=== PATIENT | female | born 1930 | race Caucasian/White ===

== ENCOUNTER 2017-11-07 22:35 | Inpatient (IN) | payer MEDICARE, MEDICAID ==
[2017-11-07] MEDS ORDERED: Maalox 30 mL Cup PO PRN (23:31)
[2017-11-07] MEDS ORDERED: Magnesium Hydroxide (MOM) 30 mL UDC PO PRN (23:31)
[2017-11-07 23:50] VITALS: BP 116/71
[2017-11-08] MEDS: Multivitamin Tab PO SCH (10:08)
--- NOTE | 2017-11-08 12:43 | Psychosocial Evaluation ---
DATE OF SERVICE: 11/07/2017 IDENTIFYING INFORMATION: The patient is an 86-year-old female, Thai speaking. HISTORY OF PRESENT ILLNESS: The patient was sent because of agitation and confusion. The patient herself is Thai speaking. I tried to talk to her and she would not answer enough my question. Actually, I took the cover of her head and she put it back quickly. The patient has been on Seroquel 12.5 mg at bedtime. The patient is unable to participate in meaningful conversation despite trying to use a outboard technician, very confused, easily agitated. PAST PSYCHIATRIC HISTORY: Unobtainable. Obviously, she seems to be demented. ALLERGIES: THE PATIENT IS ALLERGIC TO CLINDAMYCIN, CODEINE, AND PENICILLIN. MEDICATIONS: The patient is not on any medications other than the Seroquel. FAMILY AND SOCIAL HISTORY: The patient is unable to give any information regarding her family history, but however, she has a son that has already called and expected her to be discharged; however, he was told by the staff that she is still saying she just came and need to be evaluated. MENTAL STATUS EXAMINATION: The patient was appropriately dressed, not well groomed. She was in bed. She had her head covered; when I tried to take it off after a few seconds, she put it back. Could not answer my questions in any way or give me any information regarding her history. She seems to be confused and demented. When asked about suicide and homicide, she would not answer. Unable to participate in a meaningful conversation. Insight and judgment is impaired. IMPRESSION: AXIS I: Psychosis, not otherwise specified, dementia. MEDICAL DIAGNOSES: Deferred to the medical doctor. Her assets, accepting treatment. Negative poor coping skills. INITIAL TREATMENT PLAN: The patient will continue with the Seroquel. We will do group therapy, milieu therapy. ESTIMATED LENGTH OF STAY: 2-7 days. DISCHARGE CRITERIA: Feeling better, no longer psychotic. After discharge, outpatient treatment. JOB# [id number]
--- NOTE | 2017-11-08 15:29 | Internal Medicine Prog Note ---
Internal Medicine Subjective - Subjective Service Date: 11/08/17 ([id number] hn [id number]) Internal Medicine Objective - Physical Exam Vitals and I&O: Vital Signs Temp 98.6 F 11/07/17 23:28 Pulse 74 11/08/17 08:02 Resp 18 11/08/17 08:02 BP 116/71 11/07/17 23:28 Pulse Ox 98 11/08/17 08:02 Intake & Output 11/07/17 11/08/17 11/08/17 18:59 06:59 18:59 Weight (lbs) 165 lb Other: # Voids 2 Active Medications: Current Medications Acetaminophen (Tylenol) 650 mg PO Q4HR PRN PRN Reason: Mild Pain / Temp above 100 Stop: 01/06/18 23:30 Al Hydrox/Mg Hydrox/Simethicone (Maalox) 30 ml PO Q4HR PRN PRN Reason: GI DISTRESS Stop: 01/06/18 23:30 Donepezil HCl (Aricept) 5 mg PO HS VIKI Stop: 01/07/18 20:59 Lorazepam (Ativan) 0.5 mg PO Q4HR PRN; Protocol PRN Reason: Anxiety Stop: 12/07/17 23:30 Magnesium Hydroxide (Milk Of Magnesia) 30 ml PO HS PRN PRN Reason: Constipation Multivitamins/Vitamin C (Theragran) 1 tab PO DAILY VIKI Stop: 01/07/18 08:59 Last Admin: 11/08/17 10:08 Dose: Not Given Quetiapine Fumarate (Seroquel) 12.5 mg PO HS VIKI PRN Reason: Protocol Stop: 01/07/18 20:59 Zolpidem Tartrate (Ambien) 5 mg PO HS PRN PRN Reason: Insomnia Stop: 01/06/18 23:30
[2017-11-08] MEDS: INSULIN ASPART SLIDING SCALE 100 UNITS/ML UNIT SUBQ SCH ×2 (16:13→20:27)
[2017-11-08] MEDS: cloNIDine 0.2 mg/24 hr Tdm TD SCH (16:33)
[2017-11-08] MEDS ORDERED: Non-Formulary Item 1 EA (Carvedilol [Coreg] 25 MG) PO SCH (18:00)
--- NOTE | 2017-11-08 18:05 | History & Physical ---
ADMIT DATE: 11/08/2017 DICTATED FOR: Dr. Mateus Cunningham CHIEF COMPLAINT: Psychosis. HISTORY OF PRESENT ILLNESS: This is an 86-year-old female who was transferred from [facility], now admitted to the Geropsych Unit due to psychosis. The patient was at [facility]. She was admitted there on 11/01/2017. The patient was found to have an elevated troponin and it was consistent with acute NSTEMI. The patient was being treated with yarn weigher as well. She was cleared by Cardiology to be discharged here to the Geropsych Unit. PAST MEDICAL HISTORY: Acute on chronic diastolic CHF, acute NSTEMI, left bundle branch block, CAD, type 2 diabetes, encephalopathy, dementia, history of CVA with left-sided hemiplegia, history of subdermal hematoma of the right parietal region in May 2017, hyperlipidemia, hypertensive heart disease, aortic sclerosis, moderate mitral regurgitation, left ventricular diastolic dysfunction, first degree AV block. PAST SURGICAL HISTORY: . SOCIAL HISTORY: No alcohol, illicit drug usage. FAMILY HISTORY: Noncontributory. REVIEW OF SYSTEMS: Unable to obtain due to the patient's mental status. The patient is confused. PHYSICAL EXAMINATION: GENERAL: This is an elderly female, awake with confusion, no apparent distress. VITAL SIGNS: Temperature 99.6, heart rate 72, blood pressure 116/71, respiration 18, O2 97%. HEENT: Head normocephalic, atraumatic. NECK: Supple. No mass. LUNGS: Clear bilaterally. . ABDOMEN: Soft, nontender. ASSESSMENT: Acute on chronic diastolic CHF, type 2 diabetes, dementia, history of CVA with left-sided hemiplegia, history of subdural hematoma on the right parietal region, hyperlipidemia, hypertensive heart disease, psychosis. PLAN: We will get the patient's baseline hemoglobin A1c level. The patient to continue the same medications the patient was taking at home. We will continue to follow this patient. JOB# [id number]
[2017-11-08] MEDS: Atorvastatin Calcium 10 MG TAB PO SCH (20:41)
[2017-11-08] MEDS ORDERED: Non-Formulary Item 1 EA (Rosuvastatin Calcium [Crestor] 5 MG) PO SCH (21:00)
[2017-11-08] MEDS ORDERED: Non-Formulary Item 1 EA (Atorvastatin Calcium [Lipitor] 20 MG) PO SCH (21:00)
[2017-11-09] MEDS: Pantoprazole 40 mg EC Tab PO SCH (06:59)
[2017-11-09] MEDS: INSULIN ASPART SLIDING SCALE 100 UNITS/ML UNIT SUBQ SCH ×4 (08:14→20:49)
[2017-11-09] MEDS: Ferrous Sulfate 325 MG TAB PO SCH (08:15)
[2017-11-09] MEDS: Enoxaparin 30 mg/0.3 mL 0.3mL Syr SUBQ SCH (08:16)
[2017-11-09] MEDS: Lactulose 10 Gm/15 mL 30mL UDC PO SCH (08:18)
[2017-11-09] MEDS: Multivitamin Tab PO SCH (08:19)
[2017-11-09] MEDS ORDERED: FUROSEMIDE 80 MG PO SCH (09:00)
[2017-11-09] MEDS ORDERED: LISINOPRIL 40 MG PO SCH (09:00)
[2017-11-09 09:02] LABS: % BASOPHILS 0.8 % (0.0-2.0); % EOSINOPHILS 3.2 % (0.0-5.0); % LYMPHOCYTES 29.8 % (20.0-50.0); % MONOCYTES 7.9 % (2.0-10.0); % NEUTROPHILS 58.3 % (40.0-80.0); BASOPHILE ABSOLUTE 0.1 Th/cumm (0-0.2); EOSINOPHILE ABSOLUTE 0.2 Th/cmm (0.1-0.4); HEMATOCRIT 36.3 % (41.0-60); HEMOGLOBIN 11.8 gm/dL (12-16); LYMPHOCYTE ABSOLUTE 2.2 Th/cmm (1.5-3.0); MEAN CORPUSCULAR HEMOGLOBIN 27.6 pg (27.0-31.0); MEAN CORPUSCULAR HGB CONC 32.5 pg (28.0-36.0); MEAN PLATELET VOLUME 9.8 fl; MONOCYTE ABSOLUTE 0.6 Th/cmm (0.3-1.0); NEUTROPHILE ABSOLUTE 4.3 Th/cmm (1.8-8.0); PLATELET COUNT 217 Th/cmm (150-400); RED BLOOD COUNT 4.26 Mil/cmm (3.80-5.20); RED CELL DISTRIBUTION WIDTH 14.5 % (11.5-20.0); WHITE BLOOD COUNT 7.4 Th/cmm (4.8-10.8)
[2017-11-09 09:22] LABS: ANION GAP 8.1 (7.0-16.0); BUN - UREA NITROGEN 14 mg/dL (7-25); CALCIUM SERUM 9.1 mg/dL (8.6-10.3); CARBON DIOXIDE 25.8 mEq/L (21.0-31.0); CHLORIDE 108 mEq/L (98-107); CREATININE - SERUM 0.6 mg/dL (0.6-1.2); GLUCOSE 102 mg/dL (70-105); POTASSIUM SERUM 3.9 mEq/L (3.5-5.1); SODIUM SERUM 138 mEq/L (136-145)
--- NOTE | 2017-11-09 13:25 | Internal Medicine Prog Note ---
Internal Medicine Subjective - Subjective Service Date: 11/09/17 Patient seen and examined:: with staff Patient is:: awake Internal Medicine Objective - Results Result Diagrams: 11/09/17 08:40 11/09/17 08:40 Recent Labs: Laboratory Last Values WBC 7.4 Th/cmm (4.8-10.8) 11/09/17 08:40 RBC 4.26 Mil/cmm (3.80-5.20) 11/09/17 08:40 Hgb 11.8 gm/dL (12-16) L 11/09/17 08:40 Hct 36.3 % (41.0-60) L 11/09/17 08:40 MCV 85.0 fl (81-100) 11/09/17 08:40 MCH 27.6 pg (27.0-31.0) 11/09/17 08:40 MCHC Differential 32.5 pg (28.0-36.0) 11/09/17 08:40 RDW 14.5 % (11.5-20.0) 11/09/17 08:40 Plt Count 217 Th/cmm (150-400) 11/09/17 08:40 MPV 9.8 fl 11/09/17 08:40 Neutrophils % 58.3 % (40.0-80.0) 11/09/17 08:40 Lymphocytes % 29.8 % (20.0-50.0) 11/09/17 08:40 Monocytes % 7.9 % (2.0-10.0) 11/09/17 08:40 Eosinophils % 3.2 % (0.0-5.0) 11/09/17 08:40 Basophils % 0.8 % (0.0-2.0) 11/09/17 08:40 Sodium 138 mEq/L (136-145) 11/09/17 08:40 Potassium 3.9 mEq/L (3.5-5.1) 11/09/17 08:40 Chloride 108 mEq/L (98-107) H 11/09/17 08:40 Carbon Dioxide 25.8 mEq/L (21.0-31.0) 11/09/17 08:40 Anion Gap 8.1 (7.0-16.0) 11/09/17 08:40 BUN 14 mg/dL (7-25) 11/09/17 08:40 Creatinine 0.6 mg/dL (0.6-1.2) 11/09/17 08:40 Est GFR ( Amer) TNP 11/09/17 08:40 Est GFR (Non-Af Amer) TNP 11/09/17 08:40 BUN/Creatinine Ratio 23.3 11/09/17 08:40 Glucose 102 mg/dL (70-105) 11/09/17 08:40 POC Glucose 206 MG/DL (70 - 105) H 11/09/17 11:25 Calcium 9.1 mg/dL (8.6-10.3) 11/09/17 08:40 - Physical Exam Vitals and I&O: Vital Signs Temp 98.4 F 11/09/17 06:00 Pulse 74 11/09/17 08:19 Resp 18 11/09/17 06:00 BP 133/65 11/09/17 08:19 Pulse Ox 96 11/09/17 06:00 Intake & Output 11/08/17 11/09/17 11/09/17 18:59 06:59 18:59 Intake Total 600 490 Output Total 2 Balance 600 488 Intake: Oral 600 490 Output: Stool 2 Other: # Voids 3 2 # Bowel Movements 1 Active Medications: Current Medications Acetaminophen (Tylenol) 650 mg PO Q4HR PRN PRN Reason: Mild Pain / Temp above 100 Stop: 01/06/18 23:30 Al Hydrox/Mg Hydrox/Simethicone (Maalox) 30 ml PO Q4HR PRN PRN Reason: GI DISTRESS Stop: 01/06/18 23:30 Ascorbic Acid (Vitamin C) 500 mg PO DAILY [facility] Stop: 01/08/18 08:59 Last Admin: 11/09/17 08:15 Dose: 500 mg Aspirin (Ecotrin) 81 mg PO DAILY [facility] Stop: 01/08/18 08:59 Last Admin: 11/09/17 08:16 Dose: 81 mg Atorvastatin Calcium (Lipitor) 20 mg PO HS [facility] Stop: 01/07/18 20:59 Last Admin: 11/08/17 20:41 Dose: 20 mg Bisacodyl (Dulcolax 10 Mg Supp) 10 mg RC DAILY PRN PRN Reason: Constipation Stop: 01/07/18 15:29 Carvedilol (Coreg) 25 mg PO BIDWM [facility] Stop: 01/07/18 17:59 Last Admin: 11/09/17 08:15 Dose: 25 mg Clonidine HCl (Ndzwuyeb-Ajo-1) 1 patch TD Q7D [facility] Stop: 01/07/18 15:29 Last Admin: 11/08/17 16:33 Dose: 1 patch Donepezil HCl (Aricept) 5 mg PO HS VIKI Stop: 01/07/18 20:59 Last Admin: 11/08/17 21:35 Dose: 5 mg Enoxaparin Sodium (Lovenox) 30 mg SUBQ DAILY [facility] Stop: 01/08/18 08:59 Last Admin: 11/09/17 08:16 Dose: 30 mg Famotidine (Pepcid) 20 mg PO DAILY [facility] Stop: 01/08/18 08:59 Last Admin: 11/09/17 08:17 Dose: 20 mg Ferrous Sulfate (Iron) 325 mg PO QDPC [facility]KI Stop: 01/08/18 08:29 Last Admin: 11/09/17 08:15 Dose: 325 mg Furosemide (Lasix) 80 mg PO DAILY [facility] Stop: 01/08/18 08:59 Last Admin: 11/09/17 08:17 Dose: 80 mg Insulin Aspart (Novolog Insulin Sliding Scale) 0 units SUBQ ACHS VIKI PRN Reason: Protocol Stop: 01/07/18 16:29 Last Admin: 11/09/17 11:29 Dose: 4 units Isosorbide Mononitrate (Imdur) 30 mg PO DAILY [facility] Stop: 01/08/18 08:59 Last Admin: 11/09/17 08:18 Dose: 30 mg Lactulose (Cephulac) 20 gm PO DAILY [facility] Stop: 01/08/18 08:59 Last Admin: 11/09/17 08:18 Dose: 20 gm Lisinopril (Zestril) 40 mg PO DAILY [facility] Stop: 01/08/18 08:59 Last Admin: 11/09/17 08:19 Dose: 40 mg Lorazepam (Ativan) 0.5 mg PO Q4HR PRN; Protocol PRN Reason: Anxiety Stop: 12/07/17 23:30 Last Admin: 11/09/17 08:20 Dose: 0.5 mg Magnesium Hydroxide (Milk Of Magnesia) 30 ml PO HS PRN PRN Reason: Constipation Multivitamins/Vitamin C (Theragran) 1 tab PO DAILY [facility] Stop: 01/07/18 08:59 Last Admin: 11/09/17 08:19 Dose: 1 tab Pantoprazole Sodium (Protonix) 40 mg PO QDAC [facility]KI Stop: 01/08/18 07:29 Last Admin: 11/09/17 06:59 Dose: 40 mg Quetiapine Fumarate (Seroquel) 12.5 mg PO HS VIKI PRN Reason: Protocol Stop: 01/07/18 20:59 Last Admin: 11/08/17 20:41 Dose: 12.5 mg Tramadol HCl (Ultram) 50 mg PO BID PRN PRN Reason: Pain (Moderate) Stop: 01/07/18 15:29 Zolpidem Tartrate (Ambien) 5 mg PO HS PRN PRN Reason: Insomnia Stop: 01/06/18 23:30 Last Admin: 11/08/17 20:41 Dose: 5 mg Internal Medicine Assmt/Plan - Assessment Assessment: CHF DM-2 DEMENTIA 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
[2017-11-09 14:22] LABS: A1C % 7.3 % (4.0-6.0)
[2017-11-09] MEDS: Atorvastatin Calcium 10 MG TAB PO SCH (20:30)
--- NOTE | 2017-11-09 23:16 | Progress Notes ---
DATE: 11/09/2017 SUBJECTIVE: Case was discussed with staff of the patient and reviewed records. The patient continues to have poor insight, confused, demented, unable to participate in meaningful conversation or make safe plan for self-care. Continues to isolate herself in bed, but she is compliant for the medication with no side effects. She is on Aricept that I started yesterday 5 mg at bedtime and Seroquel 12.5 mg at bedtime with no side effects, no sedation, no nausea, no extrapyramidal symptoms. I will continue patient in group therapy, milieu therapy, and adjust medications as needed. JOB# [id number]
[2017-11-10] MEDS: INSULIN ASPART SLIDING SCALE 100 UNITS/ML UNIT SUBQ SCH ×4 (06:37→21:58)
[2017-11-10] MEDS: Pantoprazole 40 mg EC Tab PO SCH (06:54)
[2017-11-10] MEDS: Enoxaparin 30 mg/0.3 mL 0.3mL Syr SUBQ SCH (10:18)
[2017-11-10] MEDS: Ferrous Sulfate 325 MG TAB PO SCH (10:18)
[2017-11-10] MEDS: Multivitamin Tab PO SCH (10:19)
[2017-11-10] MEDS: Lactulose 10 Gm/15 mL 30mL UDC PO SCH (10:19)
--- NOTE | 2017-11-10 15:35 | Internal Medicine Prog Note ---
Internal Medicine Subjective - Subjective Patient seen and examined:: with staff, chart reviewed Patient is:: awake, verbal, interactive, agitated, confused Per staff patient has:: no adverse event, agitated, confused, tolerating meds Internal Medicine Objective - Results Result Diagrams: 11/09/17 08:40 11/09/17 08:40 Recent Labs: Laboratory Last Values WBC 7.4 Th/cmm (4.8-10.8) 11/09/17 08:40 RBC 4.26 Mil/cmm (3.80-5.20) 11/09/17 08:40 Hgb 11.8 gm/dL (12-16) L 11/09/17 08:40 Hct 36.3 % (41.0-60) L 11/09/17 08:40 MCV 85.0 fl (81-100) 11/09/17 08:40 MCH 27.6 pg (27.0-31.0) 11/09/17 08:40 MCHC Differential 32.5 pg (28.0-36.0) 11/09/17 08:40 RDW 14.5 % (11.5-20.0) 11/09/17 08:40 Plt Count 217 Th/cmm (150-400) 11/09/17 08:40 MPV 9.8 fl 11/09/17 08:40 Neutrophils % 58.3 % (40.0-80.0) 11/09/17 08:40 Lymphocytes % 29.8 % (20.0-50.0) 11/09/17 08:40 Monocytes % 7.9 % (2.0-10.0) 11/09/17 08:40 Eosinophils % 3.2 % (0.0-5.0) 11/09/17 08:40 Basophils % 0.8 % (0.0-2.0) 11/09/17 08:40 Sodium 138 mEq/L (136-145) 11/09/17 08:40 Potassium 3.9 mEq/L (3.5-5.1) 11/09/17 08:40 Chloride 108 mEq/L (98-107) H 11/09/17 08:40 Carbon Dioxide 25.8 mEq/L (21.0-31.0) 11/09/17 08:40 Anion Gap 8.1 (7.0-16.0) 11/09/17 08:40 BUN 14 mg/dL (7-25) 11/09/17 08:40 Creatinine 0.6 mg/dL (0.6-1.2) 11/09/17 08:40 Est GFR ( Amer) TNP 11/09/17 08:40 Est GFR (Non-Af Amer) TNP 11/09/17 08:40 BUN/Creatinine Ratio 23.3 11/09/17 08:40 Glucose 102 mg/dL (70-105) 11/09/17 08:40 POC Glucose 155 MG/DL (70 - 105) H 11/10/17 11:35 Hemoglobin A1c % 7.3 % (4.0-6.0) H 11/09/17 08:40 Calcium 9.1 mg/dL (8.6-10.3) 11/09/17 08:40 - Physical Exam Vitals and I&O: Vital Signs Temp 97.3 F 11/10/17 06:49 Pulse 56 11/10/17 10:19 Resp 19 11/10/17 12:40 BP 141/65 11/10/17 10:19 Pulse Ox 97 11/10/17 07:33 Intake & Output 11/09/17 11/10/17 11/10/17 18:59 06:59 18:59 Intake Total 1200 Balance 1200 Intake: Oral 1200 Other: # Voids 4 # Bowel Movements 4 Stool Characteristics Liquid Soft Brown Active Medications: Current Medications Acetaminophen (Tylenol) 650 mg PO Q4HR PRN PRN Reason: Mild Pain / Temp above 100 Stop: 01/06/18 23:30 Last Admin: 11/10/17 13:38 Dose: 650 mg Al Hydrox/Mg Hydrox/Simethicone (Maalox) 30 ml PO Q4HR PRN PRN Reason: GI DISTRESS Stop: 01/06/18 23:30 Ascorbic Acid (Vitamin C) 500 mg PO DAILY [facility] Stop: 01/08/18 08:59 Last Admin: 11/10/17 10:18 Dose: Not Given Aspirin (Ecotrin) 81 mg PO DAILY [facility] Stop: 01/08/18 08:59 Last Admin: 11/10/17 10:19 Dose: Not Given Atorvastatin Calcium (Lipitor) 20 mg PO HS [facility] Stop: 01/07/18 20:59 Last Admin: 11/09/17 20:30 Dose: 20 mg Bisacodyl (Dulcolax 10 Mg Supp) 10 mg RC DAILY PRN PRN Reason: Constipation Stop: 01/07/18 15:29 Carvedilol (Coreg) 25 mg PO BIDWM [facility] Stop: 01/07/18 17:59 Last Admin: 11/10/17 10:05 Dose: Not Given Clonidine HCl (Iyczczjj-Esi-1) 1 patch TD Q7D [facility]KI Stop: 01/07/18 15:29 Last Admin: 11/08/17 16:33 Dose: 1 patch Donepezil HCl (Aricept) 5 mg PO HS [facility] Stop: 01/07/18 20:59 Last Admin: 11/09/17 20:31 Dose: 5 mg Enoxaparin Sodium (Lovenox) 30 mg SUBQ DAILY [facility] Stop: 01/08/18 08:59 Last Admin: 11/10/17 10:18 Dose: 30 mg Famotidine (Pepcid) 20 mg PO DAILY [facility] Stop: 01/08/18 08:59 Last Admin: 11/10/17 10:18 Dose: Not Given Ferrous Sulfate (Iron) 325 mg PO QDPC [facility] Stop: 01/08/18 08:29 Last Admin: 11/10/17 10:18 Dose: Not Given Furosemide (Lasix) 80 mg PO DAILY [facility] Stop: 01/08/18 08:59 Last Admin: 11/10/17 10:18 Dose: Not Given Insulin Aspart (Novolog Insulin Sliding Scale) 0 units SUBQ ACHS VIKI PRN Reason: Protocol Stop: 01/07/18 16:29 Last Admin: 11/10/17 11:41 Dose: 2 units Isosorbide Mononitrate (Imdur) 30 mg PO DAILY [facility] Stop: 01/08/18 08:59 Last Admin: 11/10/17 10:19 Dose: Not Given Lactulose (Cephulac) 20 gm PO DAILY [facility] Stop: 01/08/18 08:59 Last Admin: 11/10/17 10:19 Dose: Not Given Lisinopril (Zestril) 40 mg PO DAILY [facility] Stop: 01/08/18 08:59 Last Admin: 11/10/17 10:06 Dose: Not Given Lorazepam (Ativan) 0.5 mg PO Q4HR PRN; Protocol PRN Reason: Anxiety Stop: 12/07/17 23:30 Last Admin: 11/09/17 08:20 Dose: 0.5 mg Magnesium Hydroxide (Milk Of Magnesia) 30 ml PO HS PRN PRN Reason: Constipation Multivitamins/Vitamin C (Theragran) 1 tab PO DAILY [facility] Stop: 01/07/18 08:59 Last Admin: 11/10/17 10:19 Dose: Not Given Pantoprazole Sodium (Protonix) 40 mg PO QDAC [facility] Stop: 01/08/18 07:29 Last Admin: 11/10/17 06:54 Dose: 40 mg Quetiapine Fumarate (Seroquel) 12.5 mg PO HS VIKI PRN Reason: Protocol Stop: 01/07/18 20:59 Last Admin: 11/09/17 20:31 Dose: 12.5 mg Tramadol HCl (Ultram) 50 mg PO BID PRN PRN Reason: Pain (Moderate) Stop: 01/07/18 15:29 Zolpidem Tartrate (Ambien) 5 mg PO HS PRN PRN Reason: Insomnia Stop: 01/06/18 23:30 Last Admin: 11/08/17 20:41 Dose: 5 mg General: demented, appears older HEENT: NC/AT, PERRLA, EOMI Neck: Supple, No JVD, No LAD Lungs: CTAB Cardiovascular: RRR, Normal S1, Normal S2 Abdomen: non-tender, globular Neurological: no change, disorganized, bedbound Internal Medicine Assmt/Plan - Assessment Assessment: - Assessment Assessment: CHF DM-2 DEMENTIA 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
--- NOTE | 2017-11-10 21:18 | Progress Notes ---
DATE: Dr. Cervantes covering for Diamond Acosta MD IDENTIFYING DATA: An 86-year-old female who is Romansh speaking, reported that she was brought in here after the patient presented very agitated, confused, and disorganized. Today on [id number] evaluation, the patient reports that [place] the [place]. The patient is very disorganized and unable to clarify more further information and also noted to defecate on herself. Nursing staff assisted to clean the patient. MENTAL STATUS EXAMINATION: Disorganized. She was severely memory impaired. ASSESSMENT AND PLAN: The patient is an 86-year-old female who has severe dementia; impaired ability to provide food, snf clothing outside of the structured environment as she continues to defecate on herself. We will continue with quetiapine as it was recently adjusted to target the patient's behavior disturbances and also continue with the Aricept at 5 mg a day. [facility]# [id number]
[2017-11-10] MEDS: Atorvastatin Calcium 10 MG TAB PO SCH (21:23)
[2017-11-11] MEDS: Pantoprazole 40 mg EC Tab PO SCH (06:39)
[2017-11-11] MEDS: INSULIN ASPART SLIDING SCALE 100 UNITS/ML UNIT SUBQ SCH ×4 (06:40→20:50)
[2017-11-11] MEDS: Enoxaparin 30 mg/0.3 mL 0.3mL Syr SUBQ SCH (08:53)
[2017-11-11] MEDS: Multivitamin Tab PO SCH (08:56)
[2017-11-11] MEDS: Lactulose 10 Gm/15 mL 30mL UDC PO SCH (08:56)
[2017-11-11] MEDS: Ferrous Sulfate 325 MG TAB PO SCH (08:56)
--- NOTE | 2017-11-11 15:07 | Internal Medicine Prog Note ---
Internal Medicine Subjective - Subjective Patient seen and examined:: with staff, chart reviewed Patient is:: awake, verbal, interactive, agitated, confused Per staff patient has:: no adverse event, agitated, confused, tolerating meds Internal Medicine Objective - Results Result Diagrams: 11/09/17 08:40 11/09/17 08:40 Recent Labs: Laboratory Last Values WBC 7.4 Th/cmm (4.8-10.8) 11/09/17 08:40 RBC 4.26 Mil/cmm (3.80-5.20) 11/09/17 08:40 Hgb 11.8 gm/dL (12-16) L 11/09/17 08:40 Hct 36.3 % (41.0-60) L 11/09/17 08:40 MCV 85.0 fl (81-100) 11/09/17 08:40 MCH 27.6 pg (27.0-31.0) 11/09/17 08:40 MCHC Differential 32.5 pg (28.0-36.0) 11/09/17 08:40 RDW 14.5 % (11.5-20.0) 11/09/17 08:40 Plt Count 217 Th/cmm (150-400) 11/09/17 08:40 MPV 9.8 fl 11/09/17 08:40 Neutrophils % 58.3 % (40.0-80.0) 11/09/17 08:40 Lymphocytes % 29.8 % (20.0-50.0) 11/09/17 08:40 Monocytes % 7.9 % (2.0-10.0) 11/09/17 08:40 Eosinophils % 3.2 % (0.0-5.0) 11/09/17 08:40 Basophils % 0.8 % (0.0-2.0) 11/09/17 08:40 Sodium 138 mEq/L (136-145) 11/09/17 08:40 Potassium 3.9 mEq/L (3.5-5.1) 11/09/17 08:40 Chloride 108 mEq/L (98-107) H 11/09/17 08:40 Carbon Dioxide 25.8 mEq/L (21.0-31.0) 11/09/17 08:40 Anion Gap 8.1 (7.0-16.0) 11/09/17 08:40 BUN 14 mg/dL (7-25) 11/09/17 08:40 Creatinine 0.6 mg/dL (0.6-1.2) 11/09/17 08:40 Est GFR ( Amer) TNP 11/09/17 08:40 Est GFR (Non-Af Amer) TNP 11/09/17 08:40 BUN/Creatinine Ratio 23.3 11/09/17 08:40 Glucose 102 mg/dL (70-105) 11/09/17 08:40 POC Glucose 157 MG/DL (70 - 105) H 11/11/17 12:22 Hemoglobin A1c % 7.3 % (4.0-6.0) H 11/09/17 08:40 Calcium 9.1 mg/dL (8.6-10.3) 11/09/17 08:40 - Physical Exam Vitals and I&O: Vital Signs Temp 97.6 F 11/10/17 16:47 Pulse 95 11/11/17 08:55 Resp 20 11/11/17 07:37 BP 136/72 11/11/17 08:56 Pulse Ox 95 11/11/17 07:37 Intake & Output 11/10/17 11/11/17 11/11/17 18:59 06:59 18:59 Intake Total 1200 Balance 1200 Intake: Oral 1200 Other: # Voids 3 # Bowel Movements 2 Stool Characteristics Soft Soft Brown Brown Active Medications: Current Medications Acetaminophen (Tylenol) 650 mg PO Q4HR PRN PRN Reason: Mild Pain / Temp above 100 Stop: 01/06/18 23:30 Last Admin: 11/10/17 13:38 Dose: 650 mg Al Hydrox/Mg Hydrox/Simethicone (Maalox) 30 ml PO Q4HR PRN PRN Reason: GI DISTRESS Stop: 01/06/18 23:30 Ascorbic Acid (Vitamin C) 500 mg PO DAILY [facility] Stop: 01/08/18 08:59 Last Admin: 11/11/17 08:54 Dose: 500 mg Aspirin (Ecotrin) 81 mg PO DAILY [facility] Stop: 01/08/18 08:59 Last Admin: 11/11/17 08:55 Dose: 81 mg Atorvastatin Calcium (Lipitor) 20 mg PO HS [facility] Stop: 01/07/18 20:59 Last Admin: 11/10/17 21:23 Dose: 20 mg Bisacodyl (Dulcolax 10 Mg Supp) 10 mg RC DAILY PRN PRN Reason: Constipation Stop: 01/07/18 15:29 Carvedilol (Coreg) 25 mg PO BIDWM [facility] Stop: 01/07/18 17:59 Last Admin: 11/11/17 08:55 Dose: 25 mg Clonidine HCl (Rdbmstqo-Zbm-6) 1 patch TD Q7D [facility] Stop: 01/07/18 15:29 Last Admin: 11/08/17 16:33 Dose: 1 patch Donepezil HCl (Aricept) 5 mg PO HS [facility] Stop: 01/07/18 20:59 Last Admin: 11/10/17 21:23 Dose: 5 mg Enoxaparin Sodium (Lovenox) 30 mg SUBQ DAILY [facility] Stop: 01/08/18 08:59 Last Admin: 11/11/17 08:53 Dose: 30 mg Famotidine (Pepcid) 20 mg PO DAILY [facility] Stop: 01/08/18 08:59 Last Admin: 11/11/17 08:54 Dose: 20 mg Ferrous Sulfate (Iron) 325 mg PO QDPC [facility] Stop: 01/08/18 08:29 Last Admin: 11/11/17 08:56 Dose: Not Given Furosemide (Lasix) 80 mg PO DAILY [facility] Stop: 01/08/18 08:59 Last Admin: 11/11/17 08:56 Dose: 80 mg Insulin Aspart (Novolog Insulin Sliding Scale) 0 units SUBQ ACHS [facility]KI PRN Reason: Protocol Stop: 01/07/18 16:29 Last Admin: 11/11/17 12:33 Dose: 2 units Isosorbide Mononitrate (Imdur) 30 mg PO DAILY [facility] Stop: 01/08/18 08:59 Last Admin: 11/11/17 08:54 Dose: 30 mg Lactulose (Cephulac) 20 gm PO DAILY [facility] Stop: 01/08/18 08:59 Last Admin: 11/11/17 08:56 Dose: Not Given Lisinopril (Zestril) 40 mg PO DAILY [facility] Stop: 01/08/18 08:59 Last Admin: 11/11/17 08:54 Dose: 40 mg Lorazepam (Ativan) 0.5 mg PO Q4HR PRN; Protocol PRN Reason: Anxiety Stop: 12/07/17 23:30 Last Admin: 11/11/17 08:55 Dose: 0.5 mg Magnesium Hydroxide (Milk Of Magnesia) 30 ml PO HS PRN PRN Reason: Constipation Multivitamins/Vitamin C (Theragran) 1 tab PO DAILY [facility] Stop: 01/07/18 08:59 Last Admin: 11/11/17 08:56 Dose: Not Given Pantoprazole Sodium (Protonix) 40 mg PO QDAC [facility] Stop: 01/08/18 07:29 Last Admin: 11/11/17 06:39 Dose: 40 mg Quetiapine Fumarate (Seroquel) 12.5 mg PO HS [facility]KI PRN Reason: Protocol Stop: 01/07/18 20:59 Last Admin: 11/10/17 21:24 Dose: 12.5 mg Tramadol HCl (Ultram) 50 mg PO BID PRN PRN Reason: Pain (Moderate) Stop: 01/07/18 15:29 Zolpidem Tartrate (Ambien) 5 mg PO HS PRN PRN Reason: Insomnia Stop: 01/06/18 23:30 Last Admin: 11/10/17 21:26 Dose: 5 mg General: demented, appears older HEENT: NC/AT, PERRLA, EOMI Neck: Supple, No JVD, No LAD Lungs: CTAB Cardiovascular: RRR, Normal S1, Normal S2 Abdomen: non-tender, globular Neurological: no change, disorganized, bedbound Internal Medicine Assmt/Plan - Assessment Assessment: - Assessment Assessment: CHF DM-2 DEMENTIA 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
--- NOTE | 2017-11-11 19:33 | Progress Notes ---
DATE: COVERING FOR: Dr. Acosta. SUBJECTIVE: The patient was seen and evaluated. The patient's chart reviewed. Today on effp-mo-ebis evaluation, the patient is in her bed who easily derails with conversation, unable to maintain a linear conversation. MENTAL STATUS EXAMINATION: Disorganized, derails, severe memory impaired. ASSESSMENT AND PLAN: An 86-year-old female with severe dementia and behavior disturbance associated with dementia, needs a lot of redirection, will continue with the 1:1, redirection, Aricept, continue targeting the patient's behavior disturbance associated with the dementia. JOB# [id number]
[2017-11-11] MEDS: Atorvastatin Calcium 10 MG TAB PO SCH (20:58)
[2017-11-12] MEDS: INSULIN ASPART SLIDING SCALE 100 UNITS/ML UNIT SUBQ SCH ×4 (06:49→21:56)
[2017-11-12] MEDS: Pantoprazole 40 mg EC Tab PO SCH (06:50)
[2017-11-12] MEDS: Ferrous Sulfate 325 MG TAB PO SCH (08:47)
[2017-11-12] MEDS: Multivitamin Tab PO SCH (08:48)
[2017-11-12] MEDS: Lactulose 10 Gm/15 mL 30mL UDC PO SCH (08:48)
[2017-11-12] MEDS: Enoxaparin 30 mg/0.3 mL 0.3mL Syr SUBQ SCH (09:45)
--- NOTE | 2017-11-12 12:44 | Internal Medicine Prog Note ---
Internal Medicine Subjective - Subjective Service Date: 11/12/17 Patient is:: awake, verbal, interactive, agitated, confused Per staff patient has:: no adverse event, agitated, confused, tolerating meds Internal Medicine Objective - Results Result Diagrams: 11/09/17 08:40 11/09/17 08:40 Recent Labs: Laboratory Last Values WBC 7.4 Th/cmm (4.8-10.8) 11/09/17 08:40 RBC 4.26 Mil/cmm (3.80-5.20) 11/09/17 08:40 Hgb 11.8 gm/dL (12-16) L 11/09/17 08:40 Hct 36.3 % (41.0-60) L 11/09/17 08:40 MCV 85.0 fl (81-100) 11/09/17 08:40 MCH 27.6 pg (27.0-31.0) 11/09/17 08:40 MCHC Differential 32.5 pg (28.0-36.0) 11/09/17 08:40 RDW 14.5 % (11.5-20.0) 11/09/17 08:40 Plt Count 217 Th/cmm (150-400) 11/09/17 08:40 MPV 9.8 fl 11/09/17 08:40 Neutrophils % 58.3 % (40.0-80.0) 11/09/17 08:40 Lymphocytes % 29.8 % (20.0-50.0) 11/09/17 08:40 Monocytes % 7.9 % (2.0-10.0) 11/09/17 08:40 Eosinophils % 3.2 % (0.0-5.0) 11/09/17 08:40 Basophils % 0.8 % (0.0-2.0) 11/09/17 08:40 Sodium 138 mEq/L (136-145) 11/09/17 08:40 Potassium 3.9 mEq/L (3.5-5.1) 11/09/17 08:40 Chloride 108 mEq/L (98-107) H 11/09/17 08:40 Carbon Dioxide 25.8 mEq/L (21.0-31.0) 11/09/17 08:40 Anion Gap 8.1 (7.0-16.0) 11/09/17 08:40 BUN 14 mg/dL (7-25) 11/09/17 08:40 Creatinine 0.6 mg/dL (0.6-1.2) 11/09/17 08:40 Est GFR ( Amer) TNP 11/09/17 08:40 Est GFR (Non-Af Amer) TNP 11/09/17 08:40 BUN/Creatinine Ratio 23.3 11/09/17 08:40 Glucose 102 mg/dL (70-105) 11/09/17 08:40 POC Glucose 170 MG/DL (70 - 105) H 11/12/17 12:09 Hemoglobin A1c % 7.3 % (4.0-6.0) H 11/09/17 08:40 Calcium 9.1 mg/dL (8.6-10.3) 11/09/17 08:40 - Physical Exam Vitals and I&O: Vital Signs Temp 98.2 F 11/12/17 06:31 Pulse 72 11/12/17 08:46 Resp 18 11/12/17 08:20 BP 144/75 11/12/17 08:47 Pulse Ox 97 11/12/17 08:20 Intake & Output 11/11/17 11/12/17 11/12/17 18:59 06:59 18:59 Intake Total 600 240 Output Total 1 Balance 600 239 Intake: Oral 600 240 Output: Stool 1 Other: # Voids 2 1 # Bowel Movements 1 1 Stool Characteristics Soft Soft Soft Brown Brown Brown Active Medications: Current Medications Acetaminophen (Tylenol) 650 mg PO Q4HR PRN PRN Reason: Mild Pain / Temp above 100 Stop: 01/06/18 23:30 Last Admin: 11/10/17 13:38 Dose: 650 mg Al Hydrox/Mg Hydrox/Simethicone (Maalox) 30 ml PO Q4HR PRN PRN Reason: GI DISTRESS Stop: 01/06/18 23:30 Ascorbic Acid (Vitamin C) 500 mg PO DAILY [facility] Stop: 01/08/18 08:59 Last Admin: 11/12/17 08:47 Dose: 500 mg Aspirin (Ecotrin) 81 mg PO DAILY [facility] Stop: 01/08/18 08:59 Last Admin: 11/12/17 08:48 Dose: 81 mg Atorvastatin Calcium (Lipitor) 20 mg PO HS [facility] Stop: 01/07/18 20:59 Last Admin: 11/11/17 20:58 Dose: 20 mg Bisacodyl (Dulcolax 10 Mg Supp) 10 mg RC DAILY PRN PRN Reason: Constipation Stop: 01/07/18 15:29 Carvedilol (Coreg) 25 mg PO BIDWM [facility] Stop: 01/07/18 17:59 Last Admin: 11/12/17 08:46 Dose: 25 mg Clonidine HCl (Owxzibcp-Ilb-0) 1 patch TD Q7D [facility] Stop: 01/07/18 15:29 Last Admin: 11/08/17 16:33 Dose: 1 patch Donepezil HCl (Aricept) 5 mg PO HS [facility] Stop: 01/07/18 20:59 Last Admin: 11/11/17 20:58 Dose: 5 mg Enoxaparin Sodium (Lovenox) 30 mg SUBQ DAILY [facility] Stop: 01/08/18 08:59 Last Admin: 11/12/17 09:45 Dose: 30 mg Famotidine (Pepcid) 20 mg PO DAILY [facility] Stop: 01/08/18 08:59 Last Admin: 11/12/17 08:48 Dose: 20 mg Ferrous Sulfate (Iron) 325 mg PO QDPC [facility] Stop: 01/08/18 08:29 Last Admin: 11/12/17 08:47 Dose: 325 mg Furosemide (Lasix) 80 mg PO DAILY [facility] Stop: 01/08/18 08:59 Last Admin: 11/12/17 08:47 Dose: 80 mg Insulin Aspart (Novolog Insulin Sliding Scale) 0 units SUBQ ACHS [facility] PRN Reason: Protocol Stop: 01/07/18 16:29 Last Admin: 11/12/17 06:49 Dose: Not Given Isosorbide Mononitrate (Imdur) 30 mg PO DAILY [facility] Stop: 01/08/18 08:59 Last Admin: 11/12/17 08:46 Dose: 30 mg Lactulose (Cephulac) 20 gm PO DAILY [facility] Stop: 01/08/18 08:59 Last Admin: 11/12/17 08:48 Dose: 20 gm Lisinopril (Zestril) 40 mg PO DAILY [facility] Stop: 01/08/18 08:59 Last Admin: 11/12/17 08:46 Dose: 40 mg Lorazepam (Ativan) 0.5 mg PO Q4HR PRN; Protocol PRN Reason: Anxiety Stop: 12/07/17 23:30 Last Admin: 11/12/17 08:47 Dose: 0.5 mg Magnesium Hydroxide (Milk Of Magnesia) 30 ml PO HS PRN PRN Reason: Constipation Multivitamins/Vitamin C (Theragran) 1 tab PO DAILY [facility] Stop: 01/07/18 08:59 Last Admin: 11/12/17 08:48 Dose: 1 tab Pantoprazole Sodium (Protonix) 40 mg PO QDAC [facility] Stop: 01/08/18 07:29 Last Admin: 11/12/17 06:50 Dose: 40 mg Quetiapine Fumarate (Seroquel) 12.5 mg PO HS [facility] PRN Reason: Protocol Stop: 01/07/18 20:59 Last Admin: 11/11/17 20:58 Dose: 12.5 mg Tramadol HCl (Ultram) 50 mg PO BID PRN PRN Reason: Pain (Moderate) Stop: 01/07/18 15:29 Last Admin: 11/12/17 12:14 Dose: 50 mg Zolpidem Tartrate (Ambien) 5 mg PO HS PRN PRN Reason: Insomnia Stop: 01/06/18 23:30 Last Admin: 11/10/17 21:26 Dose: 5 mg General: demented, appears older HEENT: NC/AT, PERRLA, EOMI Neck: Supple, No JVD, No LAD Lungs: CTAB Cardiovascular: RRR, Normal S1, Normal S2 Abdomen: non-tender, globular Neurological: no change, disorganized, bedbound Internal Medicine Assmt/Plan - Assessment Assessment: CHF DM-2 DEMENTIA 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
[2017-11-12] MEDS: Atorvastatin Calcium 10 MG TAB PO SCH (21:12)
--- NOTE | 2017-11-12 23:30 | Progress Notes ---
DATE: 11/12/2017 SUBJECTIVE: Case was discussed with staff of the patient, reviewed records. The patient continues to be confused, unpredictable, impulsive, needing redirection, demented, confused, unable to make safe plan for self-care, unpredictable impulsive, needing redirection. She tolerated the Aricept 5 mg at bedtime and Seroquel 12.5 mg at bedtime. No side effects, no sedation or nausea. No extrapyramidal symptoms and we will continue to work with the patient in group therapy, milieu therapy, and adjust medication as needed. JOB# [id number]
[2017-11-13] MEDS: INSULIN ASPART SLIDING SCALE 100 UNITS/ML UNIT SUBQ SCH ×4 (06:36→21:20)
[2017-11-13] MEDS: Pantoprazole 40 mg EC Tab PO SCH (06:36)
[2017-11-13] MEDS: Lactulose 10 Gm/15 mL 30mL UDC PO SCH (12:09)
[2017-11-13] MEDS: Enoxaparin 30 mg/0.3 mL 0.3mL Syr SUBQ SCH (12:10)
[2017-11-13] MEDS: Ferrous Sulfate 325 MG TAB PO SCH (12:10)
--- NOTE | 2017-11-13 15:09 | Internal Medicine Prog Note ---
Internal Medicine Subjective - Subjective Service Date: 11/13/17 Patient seen and examined:: with staff Patient is:: awake, verbal, interactive, agitated, confused Per staff patient has:: no adverse event, agitated, confused, tolerating meds Internal Medicine Objective - Results Result Diagrams: 11/09/17 08:40 11/09/17 08:40 Recent Labs: Laboratory Last Values WBC 7.4 Th/cmm (4.8-10.8) 11/09/17 08:40 RBC 4.26 Mil/cmm (3.80-5.20) 11/09/17 08:40 Hgb 11.8 gm/dL (12-16) L 11/09/17 08:40 Hct 36.3 % (41.0-60) L 11/09/17 08:40 MCV 85.0 fl (81-100) 11/09/17 08:40 MCH 27.6 pg (27.0-31.0) 11/09/17 08:40 MCHC Differential 32.5 pg (28.0-36.0) 11/09/17 08:40 RDW 14.5 % (11.5-20.0) 11/09/17 08:40 Plt Count 217 Th/cmm (150-400) 11/09/17 08:40 MPV 9.8 fl 11/09/17 08:40 Neutrophils % 58.3 % (40.0-80.0) 11/09/17 08:40 Lymphocytes % 29.8 % (20.0-50.0) 11/09/17 08:40 Monocytes % 7.9 % (2.0-10.0) 11/09/17 08:40 Eosinophils % 3.2 % (0.0-5.0) 11/09/17 08:40 Basophils % 0.8 % (0.0-2.0) 11/09/17 08:40 Sodium 138 mEq/L (136-145) 11/09/17 08:40 Potassium 3.9 mEq/L (3.5-5.1) 11/09/17 08:40 Chloride 108 mEq/L (98-107) H 11/09/17 08:40 Carbon Dioxide 25.8 mEq/L (21.0-31.0) 11/09/17 08:40 Anion Gap 8.1 (7.0-16.0) 11/09/17 08:40 BUN 14 mg/dL (7-25) 11/09/17 08:40 Creatinine 0.6 mg/dL (0.6-1.2) 11/09/17 08:40 Est GFR ( Amer) TNP 11/09/17 08:40 Est GFR (Non-Af Amer) TNP 11/09/17 08:40 BUN/Creatinine Ratio 23.3 11/09/17 08:40 Glucose 102 mg/dL (70-105) 11/09/17 08:40 POC Glucose 126 MG/DL (70 - 105) H 11/13/17 12:34 Hemoglobin A1c % 7.3 % (4.0-6.0) H 11/09/17 08:40 Calcium 9.1 mg/dL (8.6-10.3) 11/09/17 08:40 - Physical Exam Vitals and I&O: Vital Signs Temp 99 F 11/13/17 06:39 Pulse 75 11/13/17 12:09 Resp 18 11/13/17 08:00 BP 155/70 11/13/17 12:09 Pulse Ox 97 11/13/17 06:39 Intake & Output 11/12/17 11/13/17 11/13/17 18:59 06:59 18:59 Intake Total 850 240 Balance 850 240 Intake: Oral 850 240 Other: # Voids 4 3 # Bowel Movements 1 2 Stool Characteristics Soft Soft Soft Brown Brown Brown Active Medications: Current Medications Acetaminophen (Tylenol) 650 mg PO Q4HR PRN PRN Reason: Mild Pain / Temp above 100 Stop: 01/06/18 23:30 Last Admin: 11/10/17 13:38 Dose: 650 mg Al Hydrox/Mg Hydrox/Simethicone (Maalox) 30 ml PO Q4HR PRN PRN Reason: GI DISTRESS Stop: 01/06/18 23:30 Ascorbic Acid (Vitamin C) 500 mg PO DAILY [facility] Stop: 01/08/18 08:59 Last Admin: 11/13/17 12:10 Dose: 500 mg Aspirin (Ecotrin) 81 mg PO DAILY [facility] Stop: 01/08/18 08:59 Last Admin: 11/13/17 12:08 Dose: 81 mg Atorvastatin Calcium (Lipitor) 20 mg PO HS [facility] Stop: 01/07/18 20:59 Last Admin: 11/12/17 21:12 Dose: 20 mg Bisacodyl (Dulcolax 10 Mg Supp) 10 mg RC DAILY PRN PRN Reason: Constipation Stop: 01/07/18 15:29 Carvedilol (Coreg) 25 mg PO BIDWM [facility] Stop: 01/07/18 17:59 Last Admin: 11/13/17 12:09 Dose: 25 mg Clonidine HCl (Zuhwyalh-Bku-1) 1 patch TD Q7D [facility] Stop: 01/07/18 15:29 Last Admin: 11/08/17 16:33 Dose: 1 patch Donepezil HCl (Aricept) 5 mg PO HS [facility] Stop: 01/07/18 20:59 Last Admin: 11/12/17 21:13 Dose: 5 mg Enoxaparin Sodium (Lovenox) 30 mg SUBQ DAILY [facility] Stop: 01/08/18 08:59 Last Admin: 11/13/17 12:10 Dose: 30 mg Famotidine (Pepcid) 20 mg PO DAILY [facility] Stop: 01/08/18 08:59 Last Admin: 11/13/17 12:09 Dose: 20 mg Ferrous Sulfate (Iron) 325 mg PO QDPC [facility] Stop: 01/08/18 08:29 Last Admin: 11/13/17 12:10 Dose: 325 mg Furosemide (Lasix) 80 mg PO DAILY [facility] Stop: 01/08/18 08:59 Last Admin: 11/13/17 12:09 Dose: 80 mg Insulin Aspart (Novolog Insulin Sliding Scale) 0 units SUBQ ACHS [facility] PRN Reason: Protocol Stop: 01/07/18 16:29 Last Admin: 11/13/17 06:36 Dose: Not Given Isosorbide Mononitrate (Imdur) 30 mg PO DAILY [facility] Stop: 01/08/18 08:59 Last Admin: 11/13/17 12:08 Dose: 30 mg Lactulose (Cephulac) 20 gm PO DAILY [facility] Stop: 01/08/18 08:59 Last Admin: 11/13/17 12:09 Dose: 20 gm Lisinopril (Zestril) 40 mg PO DAILY [facility] Stop: 01/08/18 08:59 Last Admin: 11/12/17 08:46 Dose: 40 mg Lorazepam (Ativan) 0.5 mg PO Q4HR PRN; Protocol PRN Reason: Anxiety Stop: 12/07/17 23:30 Last Admin: 11/13/17 02:41 Dose: 0.5 mg Magnesium Hydroxide (Milk Of Magnesia) 30 ml PO HS PRN PRN Reason: Constipation Multivitamins/Vitamin C (Theragran) 1 tab PO DAILY [facility] Stop: 01/07/18 08:59 Last Admin: 11/12/17 08:48 Dose: 1 tab Pantoprazole Sodium (Protonix) 40 mg PO QDAC [facility] Stop: 01/08/18 07:29 Last Admin: 11/13/17 06:36 Dose: 40 mg Quetiapine Fumarate (Seroquel) 12.5 mg PO HS [facility] PRN Reason: Protocol Stop: 01/07/18 20:59 Last Admin: 11/12/17 21:13 Dose: 12.5 mg Tramadol HCl (Ultram) 50 mg PO BID PRN PRN Reason: Pain (Moderate) Stop: 01/07/18 15:29 Last Admin: 11/13/17 03:30 Dose: 50 mg Zolpidem Tartrate (Ambien) 5 mg PO HS PRN PRN Reason: Insomnia Stop: 01/06/18 23:30 Last Admin: 11/12/17 21:12 Dose: 5 mg General: demented, appears older HEENT: NC/AT, PERRLA, EOMI Neck: Supple, No JVD, No LAD Lungs: CTAB Cardiovascular: RRR, Normal S1, Normal S2 Abdomen: non-tender, globular Neurological: no change, disorganized, bedbound Internal Medicine Assmt/Plan - Assessment Assessment: CHF DM-2 DEMENTIA 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 Nutritional Asmnt/Malnutr-PDOC - Dietary Evaluation Malnutrition Findings (Please click <Entered> for more info): Nutritional Asmnt/Malnutrition Start: 11/13/17 12: 43 Text: Status: Complete Freq: Document 11/13/17 12:43 RUMA (Rec: 11/13/17 13:03 RUMA [email or web address]) Nutritional Asmnt/Malnutrition Patient General Information Nutritional Screening Moderate Risk Consult Diagnosis psychosis Pertinent Medical Hx/Surgical Hx CHF, NSTEMI, left bundle branch block, CAD, DM, encephalopathy, dementia, CVA, hemtoma, hyperlipidemia, hypertensive heart disease, aortic sclerosis, moderate mitral regurgitaion, left ventricular diastolic dysfunction, first degree AV block Subjective Information Consult received for wound on 11/12. Per records, PO intake 75%. Pt was only alert to self only acording to nurse notes. Current Diet Order/ Nutrition Support pureed, CCHO, boost glucose control TID Pertinent Medications vit C, iron, lasix, novolog, theragran, protonix, seroquel Pertinent Labs 11/09 Cl 108, Glucose 102, A1c 7.3 11/11-11/13 POC 91-228 Nutritional Hx/Data Height 5 ft 5 in Height (Calculated Centimeters) 165.1 Current Weight (lbs) 165 lb Weight (Calculated Kilograms) 74.8 Weight (Calculated Grams) 53313.7 [place] Body Weight 125 Body Mass Index (BMI) 27.4 Weight Status Overweight GI Symptoms GI Symptoms None Last BM 11/13 x 2 Difficult in: None Skin Integrity/Comment: erythema to medial coccyx Current %PO Good (75-100%) Estimated Nutritional Goals BEE in Kcals: Adj wt of IBW Calories/Kcals/Kg 25-30 adj wt 61kg Kcals Calculated 5768-1267 Protein: Adj wt of IBW Protein g/k Protein Calculated 61 Fluid: ml 1525-1830ml (1ml/kcal) Nutritional Problem 1. Problem Problem altered nutrition related lab values Etiology hx of DM Signs/Symptoms: Glucose 102, A1c 7.3, POC 91- 228 Malnutrition Alert Protein-Calorie Malnutrition N/A Is there a minimum of two criteria No selected? Query Text:Check all the applicable criteria. A minimum of two criteria are recommended for diagnosis of either severe or non-severe malnutrition. Intervention/Recommendation Comments 1. Continue with current diet as ordered. 2. Monitor PO intake, wt, labs and skin integrity 3. F/U as low risk in 7 days, 3/6 Expected Outcomes/Goals Expected Outcomes/Goals 1. PO intake to meet at least 75% of nutritional needs. 2. Wt stability, skin to remain intact, labs to approach WNL.
[2017-11-13] MEDS: Multivitamin Tab PO SCH (18:48)
[2017-11-13] MEDS: Atorvastatin Calcium 10 MG TAB PO SCH (21:03)
--- NOTE | 2017-11-13 21:59 | Progress Notes ---
DATE: 11/13/2017 Case was discussed with staff of patient, reviewed records. She continues to have episodes of agitation, irritability, confused, unable to participate in meaningful conversation or make safe plan for self-care. Continues to have poor insight. She is sleeping well. Appetite is improving. No side effects of medication, no sedation, no nausea. She is on Seroquel and Aricept and we will continue to work the patient with group therapy and therapy, adjust medications as needed. JOB# [id number]
[2017-11-14] MEDS: INSULIN ASPART SLIDING SCALE 100 UNITS/ML UNIT SUBQ SCH ×4 (06:38→21:42)
[2017-11-14] MEDS: Pantoprazole 40 mg EC Tab PO SCH (06:38)
[2017-11-14] MEDS: Lactulose 10 Gm/15 mL 30mL UDC PO SCH (10:24)
[2017-11-14] MEDS: Multivitamin Tab PO SCH (10:26)
[2017-11-14] MEDS: Ferrous Sulfate 325 MG TAB PO SCH (10:43)
[2017-11-14] MEDS: Enoxaparin 30 mg/0.3 mL 0.3mL Syr SUBQ SCH (12:12)
--- NOTE | 2017-11-14 13:58 | Internal Medicine Prog Note ---
Internal Medicine Subjective - Subjective Service Date: 11/14/17 Patient is:: awake, verbal, interactive, agitated, confused Per staff patient has:: no adverse event, agitated, confused, tolerating meds Internal Medicine Objective - Results Result Diagrams: 11/09/17 08:40 11/09/17 08:40 Recent Labs: Laboratory Last Values WBC 7.4 Th/cmm (4.8-10.8) 11/09/17 08:40 RBC 4.26 Mil/cmm (3.80-5.20) 11/09/17 08:40 Hgb 11.8 gm/dL (12-16) L 11/09/17 08:40 Hct 36.3 % (41.0-60) L 11/09/17 08:40 MCV 85.0 fl (81-100) 11/09/17 08:40 MCH 27.6 pg (27.0-31.0) 11/09/17 08:40 MCHC Differential 32.5 pg (28.0-36.0) 11/09/17 08:40 RDW 14.5 % (11.5-20.0) 11/09/17 08:40 Plt Count 217 Th/cmm (150-400) 11/09/17 08:40 MPV 9.8 fl 11/09/17 08:40 Neutrophils % 58.3 % (40.0-80.0) 11/09/17 08:40 Lymphocytes % 29.8 % (20.0-50.0) 11/09/17 08:40 Monocytes % 7.9 % (2.0-10.0) 11/09/17 08:40 Eosinophils % 3.2 % (0.0-5.0) 11/09/17 08:40 Basophils % 0.8 % (0.0-2.0) 11/09/17 08:40 Sodium 138 mEq/L (136-145) 11/09/17 08:40 Potassium 3.9 mEq/L (3.5-5.1) 11/09/17 08:40 Chloride 108 mEq/L (98-107) H 11/09/17 08:40 Carbon Dioxide 25.8 mEq/L (21.0-31.0) 11/09/17 08:40 Anion Gap 8.1 (7.0-16.0) 11/09/17 08:40 BUN 14 mg/dL (7-25) 11/09/17 08:40 Creatinine 0.6 mg/dL (0.6-1.2) 11/09/17 08:40 Est GFR ( Amer) TNP 11/09/17 08:40 Est GFR (Non-Af Amer) TNP 11/09/17 08:40 BUN/Creatinine Ratio 23.3 11/09/17 08:40 Glucose 102 mg/dL (70-105) 11/09/17 08:40 POC Glucose 210 MG/DL (70 - 105) H 11/13/17 21:02 Hemoglobin A1c % 7.3 % (4.0-6.0) H 11/09/17 08:40 Calcium 9.1 mg/dL (8.6-10.3) 11/09/17 08:40 - Physical Exam Vitals and I&O: Vital Signs Temp 97.0 F 11/14/17 06:17 Pulse 72 11/14/17 10:27 Resp 18 11/14/17 07:37 BP 139/73 11/14/17 10:27 Pulse Ox 96 11/14/17 07:37 Intake & Output 11/13/17 11/14/17 11/14/17 18:59 06:59 18:59 Intake Total 700 120 Balance 700 120 Intake: Oral 700 120 Other: # Voids 3 1 # Bowel Movements 1 Stool Characteristics Soft Brown Active Medications: Current Medications Acetaminophen (Tylenol) 650 mg PO Q4HR PRN PRN Reason: Mild Pain / Temp above 100 Stop: 01/06/18 23:30 Last Admin: 11/10/17 13:38 Dose: 650 mg Al Hydrox/Mg Hydrox/Simethicone (Maalox) 30 ml PO Q4HR PRN PRN Reason: GI DISTRESS Stop: 01/06/18 23:30 Ascorbic Acid (Vitamin C) 500 mg PO DAILY [facility] Stop: 01/08/18 08:59 Last Admin: 11/14/17 10:26 Dose: 500 mg Aspirin (Ecotrin) 81 mg PO DAILY [facility] Stop: 01/08/18 08:59 Last Admin: 11/14/17 10:26 Dose: 81 mg Atorvastatin Calcium (Lipitor) 20 mg PO HS [facility] Stop: 01/07/18 20:59 Last Admin: 11/13/17 21:03 Dose: 20 mg Bisacodyl (Dulcolax 10 Mg Supp) 10 mg RC DAILY PRN PRN Reason: Constipation Stop: 01/07/18 15:29 Carvedilol (Coreg) 25 mg PO BIDWM [facility] Stop: 01/07/18 17:59 Last Admin: 11/14/17 10:43 Dose: Not Given Clonidine HCl (Rkrkwpwq-Tta-6) 1 patch TD Q7D [facility] Stop: 01/07/18 15:29 Last Admin: 11/08/17 16:33 Dose: 1 patch Donepezil HCl (Aricept) 5 mg PO HS [facility] Stop: 01/07/18 20:59 Last Admin: 11/13/17 21:04 Dose: 5 mg Enoxaparin Sodium (Lovenox) 30 mg SUBQ DAILY [facility] Stop: 01/08/18 08:59 Last Admin: 11/13/17 12:10 Dose: 30 mg Famotidine (Pepcid) 20 mg PO DAILY [facility] Stop: 01/08/18 08:59 Last Admin: 11/14/17 10:26 Dose: 20 mg Ferrous Sulfate (Iron) 325 mg PO QDPC [facility] Stop: 01/08/18 08:29 Last Admin: 11/14/17 10:43 Dose: Not Given Furosemide (Lasix) 80 mg PO DAILY [facility] Stop: 01/08/18 08:59 Last Admin: 11/14/17 10:26 Dose: 80 mg Insulin Aspart (Novolog Insulin Sliding Scale) 0 units SUBQ ACHS [facility] PRN Reason: Protocol Stop: 01/07/18 16:29 Last Admin: 11/14/17 06:38 Dose: Not Given Isosorbide Mononitrate (Imdur) 30 mg PO DAILY [facility] Stop: 01/08/18 08:59 Last Admin: 11/14/17 10:25 Dose: 30 mg Lactulose (Cephulac) 20 gm PO DAILY [facility] Stop: 01/08/18 08:59 Last Admin: 11/14/17 10:24 Dose: 20 gm Lisinopril (Zestril) 40 mg PO DAILY [facility] Stop: 01/08/18 08:59 Last Admin: 11/14/17 10:27 Dose: 40 mg Lorazepam (Ativan) 0.5 mg PO Q4HR PRN; Protocol PRN Reason: Anxiety Stop: 12/07/17 23:30 Last Admin: 11/14/17 10:27 Dose: 0.5 mg Magnesium Hydroxide (Milk Of Magnesia) 30 ml PO HS PRN PRN Reason: Constipation Multivitamins/Vitamin C (Theragran) 1 tab PO DAILY [facility] Stop: 01/07/18 08:59 Last Admin: 11/14/17 10:26 Dose: 1 tab Pantoprazole Sodium (Protonix) 40 mg PO QDAC [facility] Stop: 01/08/18 07:29 Last Admin: 11/14/17 06:38 Dose: 40 mg Quetiapine Fumarate (Seroquel) 12.5 mg PO HS [facility] PRN Reason: Protocol Stop: 01/07/18 20:59 Last Admin: 11/13/17 21:04 Dose: 12.5 mg Tramadol HCl (Ultram) 50 mg PO BID PRN PRN Reason: Pain (Moderate) Stop: 01/07/18 15:29 Last Admin: 11/13/17 03:30 Dose: 50 mg Zolpidem Tartrate (Ambien) 5 mg PO HS PRN PRN Reason: Insomnia Stop: 01/06/18 23:30 Last Admin: 11/13/17 21:04 Dose: 5 mg General: demented, appears older HEENT: NC/AT, PERRLA, EOMI Neck: Supple, No JVD, No LAD Lungs: CTAB Cardiovascular: RRR, Normal S1, Normal S2 Abdomen: non-tender, globular Neurological: no change, disorganized, bedbound Internal Medicine Assmt/Plan - Assessment Assessment: CHF DM-2 DEMENTIA 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 Nutritional Asmnt/Malnutr-PDOC - Dietary Evaluation Malnutrition Findings (Please click <Entered> for more info): Nutritional Asmnt/Malnutrition Start: 11/13/17 12: 43 Text: Status: Complete Freq: Document 11/13/17 12:43 RUMA (Rec: 11/13/17 13:03 RUMA [email or web address]) Nutritional Asmnt/Malnutrition Patient General Information Nutritional Screening Moderate Risk Consult Diagnosis psychosis Pertinent Medical Hx/Surgical Hx CHF, NSTEMI, left bundle branch block, CAD, DM, encephalopathy, dementia, CVA, hemtoma, hyperlipidemia, hypertensive heart disease, aortic sclerosis, moderate mitral regurgitaion, left ventricular diastolic dysfunction, first degree AV block Subjective Information Consult received for wound on 11/12. Per records, PO intake 75%. Pt was only alert to self only acording to nurse notes. Current Diet Order/ Nutrition Support pureed, CCHO, boost glucose control TID Pertinent Medications vit C, iron, lasix, novolog, theragran, protonix, seroquel Pertinent Labs 11/09 Cl 108, Glucose 102, A1c 7.3 11/11-11/13 POC 91-228 Nutritional Hx/Data Height 5 ft 5 in Height (Calculated Centimeters) 165.1 Current Weight (lbs) 165 lb Weight (Calculated Kilograms) 74.8 Weight (Calculated Grams) 37654.7 [place] Body Weight 125 Body Mass Index (BMI) 27.4 Weight Status Overweight GI Symptoms GI Symptoms None Last BM 11/13 x 2 Difficult in: None Skin Integrity/Comment: erythema to medial coccyx Current %PO Good (75-100%) Estimated Nutritional Goals BEE in Kcals: Adj wt of IBW Calories/Kcals/Kg 25-30 adj wt 61kg Kcals Calculated 8298-0363 Protein: Adj wt of IBW Protein g/k Protein Calculated 61 Fluid: ml 1525-1830ml (1ml/kcal) Nutritional Problem 1. Problem Problem altered nutrition related lab values Etiology hx of DM Signs/Symptoms: Glucose 102, A1c 7.3, POC 91- 228 Malnutrition Alert Protein-Calorie Malnutrition N/A Is there a minimum of two criteria No selected? Query Text:Check all the applicable criteria. A minimum of two criteria are recommended for diagnosis of either severe or non-severe malnutrition. Intervention/Recommendation Comments 1. Continue with current diet as ordered. 2. Monitor PO intake, wt, labs and skin integrity 3. F/U as low risk in 7 days, 3/6 Expected Outcomes/Goals Expected Outcomes/Goals 1. PO intake to meet at least 75% of nutritional needs. 2. Wt stability, skin to remain intact, labs to approach WNL.
[2017-11-14] MEDS: Atorvastatin Calcium 10 MG TAB PO SCH (20:34)
--- NOTE | 2017-11-14 22:03 | Progress Notes ---
DATE: 11/14/2017 Case was discussed with staff of the patient, reviewed records. The patient is more alert now. She was upset this morning and she was able to tell me her age 86, but she could not tell me the date. She kept going back to saying 86. She is less confused, but she is able to express her needs, but she is disoriented, demented, unable to make safe plan for self-care. She is on Aricept 5 mg at bedtime and Seroquel 12.5 mg at bedtime with no side effects, no sedation, no nausea, and no extrapyramidal symptoms. Continues to be easily agitated. We will continue to work with the patient in the group therapy, milieu therapy, and adjust medication as needed. JOB# [id number]
[2017-11-15] MEDS: INSULIN ASPART SLIDING SCALE 100 UNITS/ML UNIT SUBQ SCH ×4 (06:35→20:30)
[2017-11-15] MEDS: Pantoprazole 40 mg EC Tab PO SCH (06:35)
[2017-11-15] MEDS: Enoxaparin 30 mg/0.3 mL 0.3mL Syr SUBQ SCH (09:22)
[2017-11-15] MEDS: Ferrous Sulfate 325 MG TAB PO SCH (09:22)
[2017-11-15] MEDS: Multivitamin Tab PO SCH (09:23)
[2017-11-15] MEDS: Lactulose 10 Gm/15 mL 30mL UDC PO SCH (09:23)
--- NOTE | 2017-11-15 13:29 | Internal Medicine Prog Note ---
Internal Medicine Subjective - Subjective Service Date: 11/15/17 Patient is:: awake, verbal, interactive, agitated, confused Per staff patient has:: no adverse event, agitated, confused, tolerating meds Internal Medicine Objective - Results Result Diagrams: 11/09/17 08:40 11/09/17 08:40 Recent Labs: Laboratory Last Values WBC 7.4 Th/cmm (4.8-10.8) 11/09/17 08:40 RBC 4.26 Mil/cmm (3.80-5.20) 11/09/17 08:40 Hgb 11.8 gm/dL (12-16) L 11/09/17 08:40 Hct 36.3 % (41.0-60) L 11/09/17 08:40 MCV 85.0 fl (81-100) 11/09/17 08:40 MCH 27.6 pg (27.0-31.0) 11/09/17 08:40 MCHC Differential 32.5 pg (28.0-36.0) 11/09/17 08:40 RDW 14.5 % (11.5-20.0) 11/09/17 08:40 Plt Count 217 Th/cmm (150-400) 11/09/17 08:40 MPV 9.8 fl 11/09/17 08:40 Neutrophils % 58.3 % (40.0-80.0) 11/09/17 08:40 Lymphocytes % 29.8 % (20.0-50.0) 11/09/17 08:40 Monocytes % 7.9 % (2.0-10.0) 11/09/17 08:40 Eosinophils % 3.2 % (0.0-5.0) 11/09/17 08:40 Basophils % 0.8 % (0.0-2.0) 11/09/17 08:40 Sodium 138 mEq/L (136-145) 11/09/17 08:40 Potassium 3.9 mEq/L (3.5-5.1) 11/09/17 08:40 Chloride 108 mEq/L (98-107) H 11/09/17 08:40 Carbon Dioxide 25.8 mEq/L (21.0-31.0) 11/09/17 08:40 Anion Gap 8.1 (7.0-16.0) 11/09/17 08:40 BUN 14 mg/dL (7-25) 11/09/17 08:40 Creatinine 0.6 mg/dL (0.6-1.2) 11/09/17 08:40 Est GFR ( Amer) TNP 11/09/17 08:40 Est GFR (Non-Af Amer) TNP 11/09/17 08:40 BUN/Creatinine Ratio 23.3 11/09/17 08:40 Glucose 102 mg/dL (70-105) 11/09/17 08:40 POC Glucose 200 MG/DL (70 - 105) H 11/15/17 11:20 Hemoglobin A1c % 7.3 % (4.0-6.0) H 11/09/17 08:40 Calcium 9.1 mg/dL (8.6-10.3) 11/09/17 08:40 - Physical Exam Vitals and I&O: Vital Signs Temp 97.9 F 11/15/17 05:16 Pulse 74 11/15/17 09:23 Resp 18 11/15/17 08:27 BP 164/92 11/15/17 09:23 Pulse Ox 100 11/15/17 08:27 Intake & Output 11/14/17 11/15/17 11/15/17 18:59 06:59 18:59 Intake Total 900 120 Balance 900 120 Intake: Oral 900 120 Other: # Voids 3 3 # Bowel Movements 1 1 Active Medications: Current Medications Acetaminophen (Tylenol) 650 mg PO Q4HR PRN PRN Reason: Mild Pain / Temp above 100 Stop: 01/06/18 23:30 Last Admin: 11/10/17 13:38 Dose: 650 mg Al Hydrox/Mg Hydrox/Simethicone (Maalox) 30 ml PO Q4HR PRN PRN Reason: GI DISTRESS Stop: 01/06/18 23:30 Ascorbic Acid (Vitamin C) 500 mg PO DAILY [facility] Stop: 01/08/18 08:59 Last Admin: 11/15/17 09:22 Dose: 500 mg Aspirin (Ecotrin) 81 mg PO DAILY [facility] Stop: 01/08/18 08:59 Last Admin: 11/15/17 09:22 Dose: 81 mg Atorvastatin Calcium (Lipitor) 20 mg PO HS [facility] Stop: 01/07/18 20:59 Last Admin: 11/14/17 20:34 Dose: 20 mg Bisacodyl (Dulcolax 10 Mg Supp) 10 mg RC DAILY PRN PRN Reason: Constipation Stop: 01/07/18 15:29 Carvedilol (Coreg) 25 mg PO BIDWM [facility] Stop: 01/07/18 17:59 Last Admin: 11/15/17 09:00 Dose: 25 mg Clonidine HCl (Panftqvo-Kyh-9) 1 patch TD Q7D [facility] Stop: 01/07/18 15:29 Last Admin: 11/08/17 16:33 Dose: 1 patch Donepezil HCl (Aricept) 5 mg PO HS [facility] Stop: 01/07/18 20:59 Last Admin: 11/14/17 20:34 Dose: 5 mg Enoxaparin Sodium (Lovenox) 30 mg SUBQ DAILY [facility] Stop: 01/08/18 08:59 Last Admin: 11/15/17 09:22 Dose: 30 mg Famotidine (Pepcid) 20 mg PO DAILY [facility] Stop: 01/08/18 08:59 Last Admin: 11/15/17 09:22 Dose: 20 mg Ferrous Sulfate (Iron) 325 mg PO QDPC [facility] Stop: 01/08/18 08:29 Last Admin: 11/15/17 09:22 Dose: 325 mg Furosemide (Lasix) 80 mg PO DAILY [facility] Stop: 01/08/18 08:59 Last Admin: 11/15/17 09:22 Dose: 80 mg Insulin Aspart (Novolog Insulin Sliding Scale) 0 units SUBQ ACHS [facility] PRN Reason: Protocol Stop: 01/07/18 16:29 Last Admin: 11/15/17 11:29 Dose: 2 units Isosorbide Mononitrate (Imdur) 30 mg PO DAILY [facility] Stop: 01/08/18 08:59 Last Admin: 11/15/17 09:22 Dose: 30 mg Lactulose (Cephulac) 20 gm PO DAILY [facility] Stop: 01/08/18 08:59 Last Admin: 11/15/17 09:23 Dose: 20 gm Lisinopril (Zestril) 40 mg PO DAILY [facility] Stop: 01/08/18 08:59 Last Admin: 11/15/17 09:23 Dose: 40 mg Lorazepam (Ativan) 0.5 mg PO Q4HR PRN; Protocol PRN Reason: Anxiety Stop: 12/07/17 23:30 Last Admin: 11/14/17 10:27 Dose: 0.5 mg Magnesium Hydroxide (Milk Of Magnesia) 30 ml PO HS PRN PRN Reason: Constipation Multivitamins/Vitamin C (Theragran) 1 tab PO DAILY [facility] Stop: 01/07/18 08:59 Last Admin: 11/15/17 09:23 Dose: 1 tab Pantoprazole Sodium (Protonix) 40 mg PO QDAC [facility] Stop: 01/08/18 07:29 Last Admin: 11/15/17 06:35 Dose: 40 mg Quetiapine Fumarate (Seroquel) 12.5 mg PO HS [facility] PRN Reason: Protocol Stop: 01/07/18 20:59 Last Admin: 11/14/17 20:34 Dose: 12.5 mg Tramadol HCl (Ultram) 50 mg PO BID PRN PRN Reason: Pain (Moderate) Stop: 01/07/18 15:29 Last Admin: 11/14/17 16:12 Dose: 50 mg Zolpidem Tartrate (Ambien) 5 mg PO HS PRN PRN Reason: Insomnia Stop: 01/06/18 23:30 Last Admin: 11/14/17 20:34 Dose: 5 mg General: demented, appears older HEENT: NC/AT, PERRLA, EOMI Neck: Supple, No JVD, No LAD Lungs: CTAB Cardiovascular: RRR, Normal S1, Normal S2 Abdomen: non-tender, globular Neurological: no change, disorganized, bedbound Internal Medicine Assmt/Plan - Assessment Assessment: CHF DM-2 DEMENTIA 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 Nutritional Asmnt/Malnutr-PDOC - Dietary Evaluation Malnutrition Findings (Please click <Entered> for more info): Nutritional Asmnt/Malnutrition Start: 11/13/17 12: 43 Text: Status: Complete Freq: Document 11/13/17 12:43 RUMA (Rec: 11/13/17 13:03 RUMA [email or web address]) Nutritional Asmnt/Malnutrition Patient General Information Nutritional Screening Moderate Risk Consult Diagnosis psychosis Pertinent Medical Hx/Surgical Hx CHF, NSTEMI, left bundle branch block, CAD, DM, encephalopathy, dementia, CVA, hemtoma, hyperlipidemia, hypertensive heart disease, aortic sclerosis, moderate mitral regurgitaion, left ventricular diastolic dysfunction, first degree AV block Subjective Information Consult received for wound on 11/12. Per records, PO intake 75%. Pt was only alert to self only acording to nurse notes. Current Diet Order/ Nutrition Support pureed, CCHO, boost glucose control TID Pertinent Medications vit C, iron, lasix, novolog, theragran, protonix, seroquel Pertinent Labs 11/09 Cl 108, Glucose 102, A1c 7.3 11/11-11/13 POC 91-228 Nutritional Hx/Data Height 5 ft 5 in Height (Calculated Centimeters) 165.1 Current Weight (lbs) 165 lb Weight (Calculated Kilograms) 74.8 Weight (Calculated Grams) 48547.7 [place] Body Weight 125 Body Mass Index (BMI) 27.4 Weight Status Overweight GI Symptoms GI Symptoms None Last BM 11/13 x 2 Difficult in: None Skin Integrity/Comment: erythema to medial coccyx Current %PO Good (75-100%) Estimated Nutritional Goals BEE in Kcals: Adj wt of IBW Calories/Kcals/Kg 25-30 adj wt 61kg Kcals Calculated 2494-5801 Protein: Adj wt of IBW Protein g/k Protein Calculated 61 Fluid: ml 1525-1830ml (1ml/kcal) Nutritional Problem 1. Problem Problem altered nutrition related lab values Etiology hx of DM Signs/Symptoms: Glucose 102, A1c 7.3, POC 91- 228 Malnutrition Alert Protein-Calorie Malnutrition N/A Is there a minimum of two criteria No selected? Query Text:Check all the applicable criteria. A minimum of two criteria are recommended for diagnosis of either severe or non-severe malnutrition. Intervention/Recommendation Comments 1. Continue with current diet as ordered. 2. Monitor PO intake, wt, labs and skin integrity 3. F/U as low risk in 7 days, 3/6 Expected Outcomes/Goals Expected Outcomes/Goals 1. PO intake to meet at least 75% of nutritional needs. 2. Wt stability, skin to remain intact, labs to approach WNL.
[2017-11-15] MEDS: cloNIDine 0.2 mg/24 hr Tdm TD SCH (15:13)
[2017-11-15] MEDS: Atorvastatin Calcium 10 MG TAB PO SCH (20:25)
--- NOTE | 2017-11-16 04:34 | Progress Notes ---
DATE: 11/15/2017 Case was discussed with staff of the patient's records. Also discussed the care with her 2 sons yesterday, as her son called me and I talked to him, in the early afternoon 12:30; however, within 2 hours I have got another call from Lizy, who was saying that her son was here and wanted to talk to me, so I assumed that this is her other son. I explained to them the situation. They agreed with the patient being demented. She lives in a nursing facility, tend to get agitated. She tends to have some lapses of memory ____. The patient continues to be unpredictable and impulsive, needing redirection. Continues to have poor insight. Continues to be unable to participate in meaningful conversation or make safe plan for self-care. No side effects with the medication, no sedation, no nausea, no extrapyramidal symptoms. We will continue to work with the patient in group therapy, milieu therapy, and adjust medications as needed. JOB# [id number]
[2017-11-16] MEDS: Pantoprazole 40 mg EC Tab PO SCH (06:51)
[2017-11-16] MEDS: INSULIN ASPART SLIDING SCALE 100 UNITS/ML UNIT SUBQ SCH ×4 (06:51→21:03)
[2017-11-16] MEDS: Ferrous Sulfate 325 MG TAB PO SCH (08:22)
[2017-11-16] MEDS: Lactulose 10 Gm/15 mL 30mL UDC PO SCH (08:23)
[2017-11-16] MEDS: Multivitamin Tab PO SCH (08:24)
[2017-11-16] MEDS: Enoxaparin 30 mg/0.3 mL 0.3mL Syr SUBQ SCH (08:57)
--- NOTE | 2017-11-16 14:12 | Internal Medicine Prog Note ---
Internal Medicine Subjective - Subjective Service Date: 11/16/17 Patient is:: awake, verbal, interactive, agitated, confused Per staff patient has:: no adverse event, agitated, confused, tolerating meds Internal Medicine Objective - Results Result Diagrams: 11/09/17 08:40 11/09/17 08:40 Recent Labs: Laboratory Last Values WBC 7.4 Th/cmm (4.8-10.8) 11/09/17 08:40 RBC 4.26 Mil/cmm (3.80-5.20) 11/09/17 08:40 Hgb 11.8 gm/dL (12-16) L 11/09/17 08:40 Hct 36.3 % (41.0-60) L 11/09/17 08:40 MCV 85.0 fl (81-100) 11/09/17 08:40 MCH 27.6 pg (27.0-31.0) 11/09/17 08:40 MCHC Differential 32.5 pg (28.0-36.0) 11/09/17 08:40 RDW 14.5 % (11.5-20.0) 11/09/17 08:40 Plt Count 217 Th/cmm (150-400) 11/09/17 08:40 MPV 9.8 fl 11/09/17 08:40 Neutrophils % 58.3 % (40.0-80.0) 11/09/17 08:40 Lymphocytes % 29.8 % (20.0-50.0) 11/09/17 08:40 Monocytes % 7.9 % (2.0-10.0) 11/09/17 08:40 Eosinophils % 3.2 % (0.0-5.0) 11/09/17 08:40 Basophils % 0.8 % (0.0-2.0) 11/09/17 08:40 Sodium 138 mEq/L (136-145) 11/09/17 08:40 Potassium 3.9 mEq/L (3.5-5.1) 11/09/17 08:40 Chloride 108 mEq/L (98-107) H 11/09/17 08:40 Carbon Dioxide 25.8 mEq/L (21.0-31.0) 11/09/17 08:40 Anion Gap 8.1 (7.0-16.0) 11/09/17 08:40 BUN 14 mg/dL (7-25) 11/09/17 08:40 Creatinine 0.6 mg/dL (0.6-1.2) 11/09/17 08:40 Est GFR ( Amer) TNP 11/09/17 08:40 Est GFR (Non-Af Amer) TNP 11/09/17 08:40 BUN/Creatinine Ratio 23.3 11/09/17 08:40 Glucose 102 mg/dL (70-105) 11/09/17 08:40 POC Glucose 249 MG/DL (70 - 105) H 11/16/17 11:41 Hemoglobin A1c % 7.3 % (4.0-6.0) H 11/09/17 08:40 Calcium 9.1 mg/dL (8.6-10.3) 11/09/17 08:40 - Physical Exam Vitals and I&O: Vital Signs Temp 98 F 11/16/17 06:33 Pulse 69 11/16/17 08:23 Resp 18 11/16/17 08:12 BP 126/74 11/16/17 08:23 Pulse Ox 99 11/16/17 08:12 Intake & Output 11/15/17 11/16/17 11/16/17 18:59 06:59 18:59 Intake Total 900 120 Balance 900 120 Intake: Oral 900 120 Other: # Voids 2 3 Active Medications: Current Medications Acetaminophen (Tylenol) 650 mg PO Q4HR PRN PRN Reason: Mild Pain / Temp above 100 Stop: 01/06/18 23:30 Last Admin: 11/10/17 13:38 Dose: 650 mg Al Hydrox/Mg Hydrox/Simethicone (Maalox) 30 ml PO Q4HR PRN PRN Reason: GI DISTRESS Stop: 01/06/18 23:30 Ascorbic Acid (Vitamin C) 500 mg PO DAILY [facility] Stop: 01/08/18 08:59 Last Admin: 11/16/17 08:21 Dose: 500 mg Aspirin (Ecotrin) 81 mg PO DAILY [facility] Stop: 01/08/18 08:59 Last Admin: 11/16/17 08:21 Dose: 81 mg Atorvastatin Calcium (Lipitor) 20 mg PO HS [facility] Stop: 01/07/18 20:59 Last Admin: 11/15/17 20:25 Dose: 20 mg Bisacodyl (Dulcolax 10 Mg Supp) 10 mg RC DAILY PRN PRN Reason: Constipation Stop: 01/07/18 15:29 Carvedilol (Coreg) 25 mg PO BIDWM [facility] Stop: 01/07/18 17:59 Last Admin: 11/16/17 08:22 Dose: 25 mg Clonidine HCl (Hnsjdbrn-Nyn-3) 1 patch TD Q7D [facility] Stop: 01/07/18 15:29 Last Admin: 11/15/17 15:13 Dose: 1 patch Donepezil HCl (Aricept) 5 mg PO HS [facility] Stop: 01/07/18 20:59 Last Admin: 11/15/17 20:25 Dose: 5 mg Enoxaparin Sodium (Lovenox) 30 mg SUBQ DAILY [facility] Stop: 01/08/18 08:59 Last Admin: 11/16/17 08:57 Dose: 30 mg Famotidine (Pepcid) 20 mg PO DAILY [facility] Stop: 01/08/18 08:59 Last Admin: 11/16/17 08:22 Dose: 20 mg Ferrous Sulfate (Iron) 325 mg PO QDPC [facility] Stop: 01/08/18 08:29 Last Admin: 11/16/17 08:22 Dose: 325 mg Furosemide (Lasix) 80 mg PO DAILY [facility] Stop: 01/08/18 08:59 Last Admin: 11/16/17 08:20 Dose: 80 mg Insulin Aspart (Novolog Insulin Sliding Scale) 0 units SUBQ ACHS [facility] PRN Reason: Protocol Stop: 01/07/18 16:29 Last Admin: 11/16/17 12:09 Dose: 4 units Isosorbide Mononitrate (Imdur) 30 mg PO DAILY [facility] Stop: 01/08/18 08:59 Last Admin: 11/16/17 08:23 Dose: 30 mg Lactulose (Cephulac) 20 gm PO DAILY [facility] Stop: 01/08/18 08:59 Last Admin: 11/16/17 08:23 Dose: 20 gm Lisinopril (Zestril) 40 mg PO DAILY [facility] Stop: 01/08/18 08:59 Last Admin: 11/16/17 08:23 Dose: 40 mg Lorazepam (Ativan) 0.5 mg PO Q4HR PRN; Protocol PRN Reason: Anxiety Stop: 12/07/17 23:30 Last Admin: 11/16/17 02:33 Dose: 0.5 mg Magnesium Hydroxide (Milk Of Magnesia) 30 ml PO HS PRN PRN Reason: Constipation Multivitamins/Vitamin C (Theragran) 1 tab PO DAILY [facility] Stop: 01/07/18 08:59 Last Admin: 11/16/17 08:24 Dose: 1 tab Pantoprazole Sodium (Protonix) 40 mg PO QDAC [facility] Stop: 01/08/18 07:29 Last Admin: 11/16/17 06:51 Dose: 40 mg Quetiapine Fumarate (Seroquel) 12.5 mg PO HS [facility] PRN Reason: Protocol Stop: 01/07/18 20:59 Last Admin: 11/15/17 20:26 Dose: 12.5 mg Tramadol HCl (Ultram) 50 mg PO BID PRN PRN Reason: Pain (Moderate) Stop: 01/07/18 15:29 Last Admin: 11/14/17 16:12 Dose: 50 mg Zolpidem Tartrate (Ambien) 5 mg PO HS PRN PRN Reason: Insomnia Stop: 01/06/18 23:30 Last Admin: 11/15/17 20:25 Dose: 5 mg General: demented, appears older HEENT: NC/AT, PERRLA, EOMI Neck: Supple, No JVD, No LAD Lungs: CTAB Cardiovascular: RRR, Normal S1, Normal S2 Abdomen: non-tender, globular Neurological: no change, disorganized, bedbound Internal Medicine Assmt/Plan - Assessment Assessment: CHF DM-2 DEMENTIA 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 Nutritional Asmnt/Malnutr-PDOC - Dietary Evaluation Malnutrition Findings (Please click <Entered> for more info): Nutritional Asmnt/Malnutrition Start: 11/13/17 12: 43 Text: Status: Complete Freq: Document 11/13/17 12:43 RUMA (Rec: 11/13/17 13:03 RUMA [id number]) Nutritional Asmnt/Malnutrition Patient General Information Nutritional Screening Moderate Risk Consult Diagnosis psychosis Pertinent Medical Hx/Surgical Hx CHF, NSTEMI, left bundle branch block, CAD, DM, encephalopathy, dementia, CVA, hemtoma, hyperlipidemia, hypertensive heart disease, aortic sclerosis, moderate mitral regurgitaion, left ventricular diastolic dysfunction, first degree AV block Subjective Information Consult received for wound on 11/12. Per records, PO intake 75%. Pt was only alert to self only acording to nurse notes. Current Diet Order/ Nutrition Support pureed, CCHO, boost glucose control TID Pertinent Medications vit C, iron, lasix, novolog, theragran, protonix, seroquel Pertinent Labs 11/09 Cl 108, Glucose 102, A1c 7.3 11/11-11/13 POC 91-228 Nutritional Hx/Data Height 5 ft 5 in Height (Calculated Centimeters) 165.1 Current Weight (lbs) 165 lb Weight (Calculated Kilograms) 74.8 Weight (Calculated Grams) 86767.7 [place] Body Weight 125 Body Mass Index (BMI) 27.4 Weight Status Overweight GI Symptoms GI Symptoms None Last BM 11/13 x 2 Difficult in: None Skin Integrity/Comment: erythema to medial coccyx Current %PO Good (75-100%) Estimated Nutritional Goals BEE in Kcals: Adj wt of IBW Calories/Kcals/Kg 25-30 adj wt 61kg Kcals Calculated 3647-5006 Protein: Adj wt of IBW Protein g/k Protein Calculated 61 Fluid: ml 1525-1830ml (1ml/kcal) Nutritional Problem 1. Problem Problem altered nutrition related lab values Etiology hx of DM Signs/Symptoms: Glucose 102, A1c 7.3, POC 91- 228 Malnutrition Alert Protein-Calorie Malnutrition N/A Is there a minimum of two criteria No selected? Query Text:Check all the applicable criteria. A minimum of two criteria are recommended for diagnosis of either severe or non-severe malnutrition. Intervention/Recommendation Comments 1. Continue with current diet as ordered. 2. Monitor PO intake, wt, labs and skin integrity 3. F/U as low risk in 7 days, 3/6 Expected Outcomes/Goals Expected Outcomes/Goals 1. PO intake to meet at least 75% of nutritional needs. 2. Wt stability, skin to remain intact, labs to approach WNL.
[2017-11-16] MEDS: Atorvastatin Calcium 10 MG TAB PO SCH (21:03)
--- NOTE | 2017-11-16 22:17 | Progress Notes ---
DATE: 11/16/2017 Case was discussed with staff of the patient, reviewed records. The patient continues to be isolating, continues to have poor insight, continues to be unable to carry on conversation or make safe plan for self-care. She is demented, confused. She tolerated the Aricept with no side effects, no sedation, no nausea, no extrapyramidal symptoms and she is on Seroquel 12.5 mg at bedtime and no side effects and we will continue to work with the patient in group therapy, milieu therapy, and adjust medication as needed. JOB# [id number]
[2017-11-17] MEDS: INSULIN ASPART SLIDING SCALE 100 UNITS/ML UNIT SUBQ SCH ×4 (06:36→21:57)
[2017-11-17] MEDS: Pantoprazole 40 mg EC Tab PO SCH (06:44)
[2017-11-17] MEDS: Ferrous Sulfate 325 MG TAB PO SCH (08:59)
[2017-11-17] MEDS: Multivitamin Tab PO SCH (08:59)
[2017-11-17] MEDS: Lactulose 10 Gm/15 mL 30mL UDC PO SCH (08:59)
[2017-11-17] MEDS: Enoxaparin 30 mg/0.3 mL 0.3mL Syr SUBQ SCH (08:59)
--- NOTE | 2017-11-17 15:34 | Internal Medicine Prog Note ---
Internal Medicine Subjective - Subjective Patient seen and examined:: with staff, chart reviewed Patient is:: awake, verbal, interactive, agitated, confused Per staff patient has:: no adverse event, agitated, confused, tolerating meds Internal Medicine Objective - Results Result Diagrams: 11/09/17 08:40 11/09/17 08:40 Recent Labs: Laboratory Last Values WBC 7.4 Th/cmm (4.8-10.8) 11/09/17 08:40 RBC 4.26 Mil/cmm (3.80-5.20) 11/09/17 08:40 Hgb 11.8 gm/dL (12-16) L 11/09/17 08:40 Hct 36.3 % (41.0-60) L 11/09/17 08:40 MCV 85.0 fl (81-100) 11/09/17 08:40 MCH 27.6 pg (27.0-31.0) 11/09/17 08:40 MCHC Differential 32.5 pg (28.0-36.0) 11/09/17 08:40 RDW 14.5 % (11.5-20.0) 11/09/17 08:40 Plt Count 217 Th/cmm (150-400) 11/09/17 08:40 MPV 9.8 fl 11/09/17 08:40 Neutrophils % 58.3 % (40.0-80.0) 11/09/17 08:40 Lymphocytes % 29.8 % (20.0-50.0) 11/09/17 08:40 Monocytes % 7.9 % (2.0-10.0) 11/09/17 08:40 Eosinophils % 3.2 % (0.0-5.0) 11/09/17 08:40 Basophils % 0.8 % (0.0-2.0) 11/09/17 08:40 Sodium 138 mEq/L (136-145) 11/09/17 08:40 Potassium 3.9 mEq/L (3.5-5.1) 11/09/17 08:40 Chloride 108 mEq/L (98-107) H 11/09/17 08:40 Carbon Dioxide 25.8 mEq/L (21.0-31.0) 11/09/17 08:40 Anion Gap 8.1 (7.0-16.0) 11/09/17 08:40 BUN 14 mg/dL (7-25) 11/09/17 08:40 Creatinine 0.6 mg/dL (0.6-1.2) 11/09/17 08:40 Est GFR ( Amer) TNP 11/09/17 08:40 Est GFR (Non-Af Amer) TNP 11/09/17 08:40 BUN/Creatinine Ratio 23.3 11/09/17 08:40 Glucose 102 mg/dL (70-105) 11/09/17 08:40 POC Glucose 168 MG/DL (70 - 105) H 11/17/17 10:39 Hemoglobin A1c % 7.3 % (4.0-6.0) H 11/09/17 08:40 Calcium 9.1 mg/dL (8.6-10.3) 11/09/17 08:40 - Physical Exam Vitals and I&O: Vital Signs Temp 97.8 F 11/16/17 15:30 Pulse 80 11/17/17 09:02 Resp 12 11/17/17 08:35 BP 131/70 11/17/17 09:02 Pulse Ox 98 11/17/17 08:35 Intake & Output 11/16/17 11/17/17 11/17/17 18:59 06:59 18:59 Intake Total 900 Balance 900 Intake: Oral 900 Other: # Voids 3 Active Medications: Current Medications Acetaminophen (Tylenol) 650 mg PO Q4HR PRN PRN Reason: Mild Pain / Temp above 100 Stop: 01/06/18 23:30 Last Admin: 11/10/17 13:38 Dose: 650 mg Al Hydrox/Mg Hydrox/Simethicone (Maalox) 30 ml PO Q4HR PRN PRN Reason: GI DISTRESS Stop: 01/06/18 23:30 Ascorbic Acid (Vitamin C) 500 mg PO DAILY [facility] Stop: 01/08/18 08:59 Last Admin: 11/17/17 09:01 Dose: 500 mg Aspirin (Ecotrin) 81 mg PO DAILY [facility] Stop: 01/08/18 08:59 Last Admin: 11/17/17 09:00 Dose: 81 mg Atorvastatin Calcium (Lipitor) 20 mg PO HS [facility] Stop: 01/07/18 20:59 Last Admin: 11/16/17 21:03 Dose: 20 mg Bisacodyl (Dulcolax 10 Mg Supp) 10 mg RC DAILY PRN PRN Reason: Constipation Stop: 01/07/18 15:29 Carvedilol (Coreg) 25 mg PO BIDWM [facility] Stop: 01/07/18 17:59 Last Admin: 11/17/17 09:01 Dose: 25 mg Clonidine HCl ([id number]-[id number]-6) 1 patch TD Q7D [facility] Stop: 01/07/18 15:29 Last Admin: 11/15/17 15:13 Dose: 1 patch Donepezil HCl (Aricept) 5 mg PO HS [facility] Stop: 01/07/18 20:59 Last Admin: 11/16/17 21:03 Dose: 5 mg Famotidine (Pepcid) 20 mg PO DAILY [facility] Stop: 01/08/18 08:59 Last Admin: 11/17/17 08:59 Dose: 20 mg Ferrous Sulfate (Iron) 325 mg PO QDPC [facility] Stop: 01/08/18 08:29 Last Admin: 11/17/17 08:59 Dose: 325 mg Furosemide (Lasix) 80 mg PO DAILY [facility] Stop: 01/08/18 08:59 Last Admin: 11/17/17 09:01 Dose: 80 mg Insulin Aspart (Novolog Insulin Sliding Scale) 0 units SUBQ ACHS [facility] PRN Reason: Protocol Stop: 01/07/18 16:29 Last Admin: 11/17/17 10:58 Dose: 2 units Isosorbide Mononitrate (Imdur) 30 mg PO DAILY [facility] Stop: 01/08/18 08:59 Last Admin: 11/17/17 09:00 Dose: 30 mg Lactulose (Cephulac) 20 gm PO DAILY [facility] Stop: 01/08/18 08:59 Last Admin: 11/17/17 08:59 Dose: 20 gm Lisinopril (Zestril) 40 mg PO DAILY [facility] Stop: 01/08/18 08:59 Last Admin: 11/17/17 09:02 Dose: 40 mg Lorazepam (Ativan) 0.5 mg PO Q4HR PRN; Protocol PRN Reason: Anxiety Stop: 12/07/17 23:30 Last Admin: 11/16/17 21:03 Dose: 0.5 mg Magnesium Hydroxide (Milk Of Magnesia) 30 ml PO HS PRN PRN Reason: Constipation Multivitamins/Vitamin C (Theragran) 1 tab PO DAILY [facility] Stop: 01/07/18 08:59 Last Admin: 11/17/17 08:59 Dose: 1 tab Pantoprazole Sodium (Protonix) 40 mg PO QDAC [facility] Stop: 01/08/18 07:29 Last Admin: 11/17/17 06:44 Dose: 40 mg Quetiapine Fumarate (Seroquel) 12.5 mg PO HS [facility] PRN Reason: Protocol Stop: 01/07/18 20:59 Last Admin: 11/16/17 21:03 Dose: 12.5 mg Tramadol HCl (Ultram) 50 mg PO BID PRN PRN Reason: Pain (Moderate) Stop: 01/07/18 15:29 Last Admin: 11/14/17 16:12 Dose: 50 mg Zolpidem Tartrate (Ambien) 5 mg PO HS PRN PRN Reason: Insomnia Stop: 01/06/18 23:30 Last Admin: 11/16/17 21:04 Dose: 5 mg General: demented, appears older HEENT: NC/AT, PERRLA, EOMI Neck: Supple, No JVD, No LAD Lungs: CTAB Cardiovascular: RRR, Normal S1, Normal S2 Abdomen: non-tender, globular Neurological: no change, disorganized, bedbound Internal Medicine Assmt/Plan - Assessment Assessment: - Assessment Assessment: CHF DM-2 DEMENTIA 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 Nutritional Asmnt/Malnutr-PDOC - Dietary Evaluation Malnutrition Findings (Please click <Entered> for more info): Nutritional Asmnt/Malnutrition Start: 11/13/17 12: 43 Text: Status: Complete Freq: Document 11/13/17 12:43 RUMA (Rec: 11/13/17 13:03 RUMA [email or web address]) Nutritional Asmnt/Malnutrition Patient General Information Nutritional Screening Moderate Risk Consult Diagnosis psychosis Pertinent Medical Hx/Surgical Hx CHF, NSTEMI, left bundle branch block, CAD, DM, encephalopathy, dementia, CVA, hemtoma, hyperlipidemia, hypertensive heart disease, aortic sclerosis, moderate mitral regurgitaion, left ventricular diastolic dysfunction, first degree AV block Subjective Information Consult received for wound on 11/12. Per records, PO intake 75%. Pt was only alert to self only acording to nurse notes. Current Diet Order/ Nutrition Support pureed, CCHO, boost glucose control TID Pertinent Medications vit C, iron, lasix, novolog, theragran, protonix, seroquel Pertinent Labs 11/09 Cl 108, Glucose 102, A1c 7.3 11/11-11/13 POC 91-228 Nutritional Hx/Data Height 1.65 m Height (Calculated Centimeters) 165.1 Current Weight (lbs) 74.843 kg Weight (Calculated Kilograms) 74.8 Weight (Calculated Grams) 60564.7 [place] Body Weight 125 Body Mass Index (BMI) 27.4 Weight Status Overweight GI Symptoms GI Symptoms None Last BM 11/13 x 2 Difficult in: None Skin Integrity/Comment: erythema to medial coccyx Current %PO Good (75-100%) Estimated Nutritional Goals BEE in Kcals: Adj wt of IBW Calories/Kcals/Kg 25-30 adj wt 61kg Kcals Calculated 8068-9234 Protein: Adj wt of IBW Protein g/k Protein Calculated 61 Fluid: ml 1525-1830ml (1ml/kcal) Nutritional Problem 1. Problem Problem altered nutrition related lab values Etiology hx of DM Signs/Symptoms: Glucose 102, A1c 7.3, POC 91- 228 Malnutrition Alert Protein-Calorie Malnutrition N/A Is there a minimum of two criteria No selected? Query Text:Check all the applicable criteria. A minimum of two criteria are recommended for diagnosis of either severe or non-severe malnutrition. Intervention/Recommendation Comments 1. Continue with current diet as ordered. 2. Monitor PO intake, wt, labs and skin integrity 3. F/U as low risk in 7 days, 3/6 Expected Outcomes/Goals Expected Outcomes/Goals 1. PO intake to meet at least 75% of nutritional needs. 2. Wt stability, skin to remain intact, labs to approach WNL.
--- NOTE | 2017-11-17 16:44 | Progress Notes ---
DATE: 11/17/2017 Case discussed with the staff of patient also met with both of her sons yesterday who were very thankful and appreciative. They think that the mother is doing better. I explained to them that have been very easy on her with the medication because of her age and also she came on Seroquel. We kept her on that and I added Aricept to her medication. I explained all that to them. Also, I talked to both of them by phone 3 days ago to explain the situation. The patient so far has been a bit calmer. Apparently when she came, she had multiple bruises and the pictures of them are available in the chart. The staff reported the patient. They have been coming to the unit and taking pictures for their mother. They believe these bruises are from the staff here; however, when she came in here. She did have this bruises and we will continue to work with the patient with group therapy, milieu therapy and adjust medications. JOB# [id number]
[2017-11-17] MEDS: Atorvastatin Calcium 10 MG TAB PO SCH (21:49)
[2017-11-18] MEDS: Pantoprazole 40 mg EC Tab PO SCH (06:37)
[2017-11-18] MEDS: INSULIN ASPART SLIDING SCALE 100 UNITS/ML UNIT SUBQ SCH ×4 (06:37→21:30)
[2017-11-18] MEDS: Multivitamin Tab PO SCH (08:46)
[2017-11-18] MEDS: Ferrous Sulfate 325 MG TAB PO SCH (08:47)
[2017-11-18] MEDS: Lactulose 10 Gm/15 mL 30mL UDC PO SCH (08:48)
--- NOTE | 2017-11-18 15:25 | Internal Medicine Prog Note ---
Internal Medicine Subjective - Subjective Patient seen and examined:: with staff, chart reviewed Patient is:: awake, verbal, interactive, agitated, confused Per staff patient has:: no adverse event, agitated, confused, tolerating meds Internal Medicine Objective - Results Result Diagrams: 11/09/17 08:40 11/09/17 08:40 Recent Labs: Laboratory Last Values WBC 7.4 Th/cmm (4.8-10.8) 11/09/17 08:40 RBC 4.26 Mil/cmm (3.80-5.20) 11/09/17 08:40 Hgb 11.8 gm/dL (12-16) L 11/09/17 08:40 Hct 36.3 % (41.0-60) L 11/09/17 08:40 MCV 85.0 fl (81-100) 11/09/17 08:40 MCH 27.6 pg (27.0-31.0) 11/09/17 08:40 MCHC Differential 32.5 pg (28.0-36.0) 11/09/17 08:40 RDW 14.5 % (11.5-20.0) 11/09/17 08:40 Plt Count 217 Th/cmm (150-400) 11/09/17 08:40 MPV 9.8 fl 11/09/17 08:40 Neutrophils % 58.3 % (40.0-80.0) 11/09/17 08:40 Lymphocytes % 29.8 % (20.0-50.0) 11/09/17 08:40 Monocytes % 7.9 % (2.0-10.0) 11/09/17 08:40 Eosinophils % 3.2 % (0.0-5.0) 11/09/17 08:40 Basophils % 0.8 % (0.0-2.0) 11/09/17 08:40 Sodium 138 mEq/L (136-145) 11/09/17 08:40 Potassium 3.9 mEq/L (3.5-5.1) 11/09/17 08:40 Chloride 108 mEq/L (98-107) H 11/09/17 08:40 Carbon Dioxide 25.8 mEq/L (21.0-31.0) 11/09/17 08:40 Anion Gap 8.1 (7.0-16.0) 11/09/17 08:40 BUN 14 mg/dL (7-25) 11/09/17 08:40 Creatinine 0.6 mg/dL (0.6-1.2) 11/09/17 08:40 Est GFR ( Amer) TNP 11/09/17 08:40 Est GFR (Non-Af Amer) TNP 11/09/17 08:40 BUN/Creatinine Ratio 23.3 11/09/17 08:40 Glucose 102 mg/dL (70-105) 11/09/17 08:40 POC Glucose 196 MG/DL (70 - 105) H 11/18/17 11:54 Hemoglobin A1c % 7.3 % (4.0-6.0) H 11/09/17 08:40 Calcium 9.1 mg/dL (8.6-10.3) 11/09/17 08:40 - Physical Exam Vitals and I&O: Vital Signs Temp 98.5 F 11/18/17 06:32 Pulse 70 11/18/17 13:57 Resp 18 11/18/17 13:57 BP 147/67 11/18/17 08:47 Pulse Ox 98 11/18/17 07:00 Intake & Output 11/17/17 11/18/17 11/18/17 18:59 06:59 18:59 Intake Total 900 Balance 900 Intake: Oral 900 Other: # Voids 3 Stool Characteristics Soft Formed Active Medications: Current Medications Acetaminophen (Tylenol) 650 mg PO Q4HR PRN PRN Reason: Mild Pain / Temp above 100 Stop: 01/06/18 23:30 Last Admin: 11/10/17 13:38 Dose: 650 mg Al Hydrox/Mg Hydrox/Simethicone (Maalox) 30 ml PO Q4HR PRN PRN Reason: GI DISTRESS Stop: 01/06/18 23:30 Ascorbic Acid (Vitamin C) 500 mg PO DAILY [facility] Stop: 01/08/18 08:59 Last Admin: 11/18/17 08:47 Dose: 500 mg Aspirin (Ecotrin) 81 mg PO DAILY [facility] Stop: 01/08/18 08:59 Last Admin: 11/18/17 08:47 Dose: 81 mg Atorvastatin Calcium (Lipitor) 20 mg PO HS [facility] Stop: 01/07/18 20:59 Last Admin: 11/17/17 21:49 Dose: 20 mg Bisacodyl (Dulcolax 10 Mg Supp) 10 mg RC DAILY PRN PRN Reason: Constipation Stop: 01/07/18 15:29 Carvedilol (Coreg) 25 mg PO BIDWM [facility] Stop: 01/07/18 17:59 Last Admin: 11/18/17 08:47 Dose: 25 mg Clonidine HCl (Vcjzcmkx-Owm-1) 1 patch TD Q7D [facility] Stop: 01/07/18 15:29 Last Admin: 11/15/17 15:13 Dose: 1 patch Donepezil HCl (Aricept) 5 mg PO HS [facility] Stop: 01/07/18 20:59 Last Admin: 11/17/17 21:49 Dose: 5 mg Famotidine (Pepcid) 20 mg PO DAILY [facility] Stop: 01/08/18 08:59 Last Admin: 11/18/17 08:47 Dose: 20 mg Ferrous Sulfate (Iron) 325 mg PO QDPC [facility] Stop: 01/08/18 08:29 Last Admin: 11/18/17 08:47 Dose: 325 mg Furosemide (Lasix) 80 mg PO DAILY [facility] Stop: 01/08/18 08:59 Last Admin: 11/18/17 08:46 Dose: 80 mg Insulin Aspart (Novolog Insulin Sliding Scale) 0 units SUBQ ACHS [facility] PRN Reason: Protocol Stop: 01/07/18 16:29 Last Admin: 11/18/17 12:03 Dose: 2 units Isosorbide Mononitrate (Imdur) 30 mg PO DAILY [facility] Stop: 01/08/18 08:59 Last Admin: 11/18/17 08:46 Dose: 30 mg Lactulose (Cephulac) 20 gm PO DAILY [facility] Stop: 01/08/18 08:59 Last Admin: 11/18/17 08:48 Dose: Not Given Lisinopril (Zestril) 40 mg PO DAILY [facility] Stop: 01/08/18 08:59 Last Admin: 11/18/17 08:47 Dose: 40 mg Lorazepam (Ativan) 0.5 mg PO Q4HR PRN; Protocol PRN Reason: Anxiety Stop: 12/07/17 23:30 Last Admin: 11/16/17 21:03 Dose: 0.5 mg Magnesium Hydroxide (Milk Of Magnesia) 30 ml PO HS PRN PRN Reason: Constipation Multivitamins/Vitamin C (Theragran) 1 tab PO DAILY [facility] Stop: 01/07/18 08:59 Last Admin: 11/18/17 08:46 Dose: 1 tab Pantoprazole Sodium (Protonix) 40 mg PO QDAC [facility] Stop: 01/08/18 07:29 Last Admin: 11/18/17 06:37 Dose: 40 mg Quetiapine Fumarate (Seroquel) 12.5 mg PO HS [facility] PRN Reason: Protocol Stop: 01/07/18 20:59 Last Admin: 11/17/17 21:49 Dose: 12.5 mg Tramadol HCl (Ultram) 50 mg PO BID PRN PRN Reason: Pain (Moderate) Stop: 01/07/18 15:29 Last Admin: 11/14/17 16:12 Dose: 50 mg Zolpidem Tartrate (Ambien) 5 mg PO HS PRN PRN Reason: Insomnia Stop: 01/06/18 23:30 Last Admin: 11/17/17 21:51 Dose: 5 mg General: demented, appears older HEENT: NC/AT, PERRLA, EOMI Neck: Supple, No JVD, No LAD Lungs: CTAB Cardiovascular: RRR, Normal S1, Normal S2 Abdomen: non-tender, globular Neurological: no change, disorganized, bedbound Internal Medicine Assmt/Plan - Assessment Assessment: - Assessment Assessment: CHF DM-2 DEMENTIA 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 Nutritional Asmnt/Malnutr-PDOC - Dietary Evaluation Malnutrition Findings (Please click <Entered> for more info): Nutritional Asmnt/Malnutrition Start: 11/13/17 12: 43 Text: Status: Complete Freq: Document 11/13/17 12:43 RUMA (Rec: 11/13/17 13:03 RUMA [email or web address]) Nutritional Asmnt/Malnutrition Patient General Information Nutritional Screening Moderate Risk Consult Diagnosis psychosis Pertinent Medical Hx/Surgical Hx CHF, NSTEMI, left bundle branch block, CAD, DM, encephalopathy, dementia, CVA, hemtoma, hyperlipidemia, hypertensive heart disease, aortic sclerosis, moderate mitral regurgitaion, left ventricular diastolic dysfunction, first degree AV block Subjective Information Consult received for wound on 11/12. Per records, PO intake 75%. Pt was only alert to self only acording to nurse notes. Current Diet Order/ Nutrition Support pureed, CCHO, boost glucose control TID Pertinent Medications vit C, iron, lasix, novolog, theragran, protonix, seroquel Pertinent Labs 11/09 Cl 108, Glucose 102, A1c 7.3 11/11-11/13 POC 91-228 Nutritional Hx/Data Height 1.65 m Height (Calculated Centimeters) 165.1 Current Weight (lbs) 74.843 kg Weight (Calculated Kilograms) 74.8 Weight (Calculated Grams) 01545.7 [place] Body Weight 125 Body Mass Index (BMI) 27.4 Weight Status Overweight GI Symptoms GI Symptoms None Last BM 11/13 x 2 Difficult in: None Skin Integrity/Comment: erythema to medial coccyx Current %PO Good (75-100%) Estimated Nutritional Goals BEE in Kcals: Adj wt of IBW Calories/Kcals/Kg 25-30 adj wt 61kg Kcals Calculated 8483-8773 Protein: Adj wt of IBW Protein g/k Protein Calculated 61 Fluid: ml 1525-1830ml (1ml/kcal) Nutritional Problem 1. Problem Problem altered nutrition related lab values Etiology hx of DM Signs/Symptoms: Glucose 102, A1c 7.3, POC 91- 228 Malnutrition Alert Protein-Calorie Malnutrition N/A Is there a minimum of two criteria No selected? Query Text:Check all the applicable criteria. A minimum of two criteria are recommended for diagnosis of either severe or non-severe malnutrition. Intervention/Recommendation Comments 1. Continue with current diet as ordered. 2. Monitor PO intake, wt, labs and skin integrity 3. F/U as low risk in 7 days, 3/6 Expected Outcomes/Goals Expected Outcomes/Goals 1. PO intake to meet at least 75% of nutritional needs. 2. Wt stability, skin to remain intact, labs to approach WNL.
[2017-11-18] MEDS: Atorvastatin Calcium 10 MG TAB PO SCH (21:18)
--- NOTE | 2017-11-18 22:27 | Progress Notes ---
DATE: 11/18/2017 Case was discussed with staff of the patient, reviewed records. Also met with both of her sons who are here as well as her [id number], they are very appreciative. They think that the mother is improving. Her birthday is tomorrow. She was able to recognize as she was telling us that her birthday is tomorrow. She can be 87. Family is very supportive. They want her to go back to the same prison ____. They believe they took care of her while she was here and they were happy with the services there and so far no side effects with the medication, no sedation, no nausea, no extrapyramidal symptoms. The patient seems to be showing some progress. More alert and able to communicate. We will continue to work with the patient in group therapy, milieu therapy, and adjust medications as needed. JOB# [id number]
[2017-11-19] MEDS: INSULIN ASPART SLIDING SCALE 100 UNITS/ML UNIT SUBQ SCH ×4 (06:37→21:28)
[2017-11-19] MEDS: Pantoprazole 40 mg EC Tab PO SCH (06:37)
[2017-11-19] MEDS: Ferrous Sulfate 325 MG TAB PO SCH (09:44)
[2017-11-19] MEDS: Lactulose 10 Gm/15 mL 30mL UDC PO SCH (09:45)
[2017-11-19] MEDS: Multivitamin Tab PO SCH (09:46)
--- NOTE | 2017-11-19 15:03 | Internal Medicine Prog Note ---
Internal Medicine Subjective - Subjective Patient seen and examined:: with staff, chart reviewed Patient is:: awake, verbal, interactive, agitated, confused Per staff patient has:: no adverse event, agitated, confused, tolerating meds Internal Medicine Objective - Results Result Diagrams: 11/09/17 08:40 11/09/17 08:40 Recent Labs: Laboratory Last Values WBC 7.4 Th/cmm (4.8-10.8) 11/09/17 08:40 RBC 4.26 Mil/cmm (3.80-5.20) 11/09/17 08:40 Hgb 11.8 gm/dL (12-16) L 11/09/17 08:40 Hct 36.3 % (41.0-60) L 11/09/17 08:40 MCV 85.0 fl (81-100) 11/09/17 08:40 MCH 27.6 pg (27.0-31.0) 11/09/17 08:40 MCHC Differential 32.5 pg (28.0-36.0) 11/09/17 08:40 RDW 14.5 % (11.5-20.0) 11/09/17 08:40 Plt Count 217 Th/cmm (150-400) 11/09/17 08:40 MPV 9.8 fl 11/09/17 08:40 Neutrophils % 58.3 % (40.0-80.0) 11/09/17 08:40 Lymphocytes % 29.8 % (20.0-50.0) 11/09/17 08:40 Monocytes % 7.9 % (2.0-10.0) 11/09/17 08:40 Eosinophils % 3.2 % (0.0-5.0) 11/09/17 08:40 Basophils % 0.8 % (0.0-2.0) 11/09/17 08:40 Sodium 138 mEq/L (136-145) 11/09/17 08:40 Potassium 3.9 mEq/L (3.5-5.1) 11/09/17 08:40 Chloride 108 mEq/L (98-107) H 11/09/17 08:40 Carbon Dioxide 25.8 mEq/L (21.0-31.0) 11/09/17 08:40 Anion Gap 8.1 (7.0-16.0) 11/09/17 08:40 BUN 14 mg/dL (7-25) 11/09/17 08:40 Creatinine 0.6 mg/dL (0.6-1.2) 11/09/17 08:40 Est GFR ( Amer) TNP 11/09/17 08:40 Est GFR (Non-Af Amer) TNP 11/09/17 08:40 BUN/Creatinine Ratio 23.3 11/09/17 08:40 Glucose 102 mg/dL (70-105) 11/09/17 08:40 POC Glucose 135 MG/DL (70 - 105) H 11/19/17 11:51 Hemoglobin A1c % 7.3 % (4.0-6.0) H 11/09/17 08:40 Calcium 9.1 mg/dL (8.6-10.3) 11/09/17 08:40 - Physical Exam Vitals and I&O: Vital Signs Temp 97.7 F 11/19/17 06:29 Pulse 75 11/19/17 11:21 Resp 19 11/19/17 11:21 BP 140/72 11/19/17 09:45 Pulse Ox 94 11/19/17 06:50 Intake & Output 11/18/17 11/19/17 11/19/17 18:59 06:59 18:59 Intake Total 900 240 Output Total 3 Balance 900 237 Intake: Oral 900 240 Output: Stool 3 Other: # Voids 4 2 # Bowel Movements 2 1 Stool Characteristics Soft Soft Formed Formed Active Medications: Current Medications Acetaminophen (Tylenol) 650 mg PO Q4HR PRN PRN Reason: Mild Pain / Temp above 100 Stop: 01/06/18 23:30 Last Admin: 11/10/17 13:38 Dose: 650 mg Al Hydrox/Mg Hydrox/Simethicone (Maalox) 30 ml PO Q4HR PRN PRN Reason: GI DISTRESS Stop: 01/06/18 23:30 Ascorbic Acid (Vitamin C) 500 mg PO DAILY [facility] Stop: 01/08/18 08:59 Last Admin: 11/19/17 09:44 Dose: 500 mg Aspirin (Ecotrin) 81 mg PO DAILY [facility] Stop: 01/08/18 08:59 Last Admin: 11/19/17 09:44 Dose: 81 mg Atorvastatin Calcium (Lipitor) 20 mg PO HS [facility] Stop: 01/07/18 20:59 Last Admin: 11/18/17 21:18 Dose: 20 mg Bisacodyl (Dulcolax 10 Mg Supp) 10 mg RC DAILY PRN PRN Reason: Constipation Stop: 01/07/18 15:29 Carvedilol (Coreg) 25 mg PO BIDWM [facility] Stop: 01/07/18 17:59 Last Admin: 11/19/17 09:44 Dose: 25 mg Clonidine HCl (Cdsqgxeo-Qin-0) 1 patch TD Q7D [facility] Stop: 01/07/18 15:29 Last Admin: 11/15/17 15:13 Dose: 1 patch Donepezil HCl (Aricept) 5 mg PO HS [facility] Stop: 01/07/18 20:59 Last Admin: 11/18/17 21:18 Dose: 5 mg Famotidine (Pepcid) 20 mg PO DAILY [facility] Stop: 01/08/18 08:59 Last Admin: 11/19/17 09:44 Dose: 20 mg Ferrous Sulfate (Iron) 325 mg PO QDPC [facility] Stop: 01/08/18 08:29 Last Admin: 11/19/17 09:44 Dose: 325 mg Furosemide (Lasix) 80 mg PO DAILY [facility] Stop: 01/08/18 08:59 Last Admin: 11/19/17 09:44 Dose: 80 mg Insulin Aspart (Novolog Insulin Sliding Scale) 0 units SUBQ ACHS [facility] PRN Reason: Protocol Stop: 01/07/18 16:29 Last Admin: 11/19/17 11:56 Dose: Not Given Isosorbide Mononitrate (Imdur) 30 mg PO DAILY [facility] Stop: 01/08/18 08:59 Last Admin: 11/19/17 09:45 Dose: 30 mg Lactulose (Cephulac) 20 gm PO DAILY [facility] Stop: 01/08/18 08:59 Last Admin: 11/19/17 09:45 Dose: Not Given Lisinopril (Zestril) 40 mg PO DAILY [facility] Stop: 01/08/18 08:59 Last Admin: 11/19/17 09:45 Dose: 40 mg Lorazepam (Ativan) 0.5 mg PO Q4HR PRN; Protocol PRN Reason: Anxiety Stop: 12/07/17 23:30 Last Admin: 11/16/17 21:03 Dose: 0.5 mg Magnesium Hydroxide (Milk Of Magnesia) 30 ml PO HS PRN PRN Reason: Constipation Multivitamins/Vitamin C (Theragran) 1 tab PO DAILY [facility] Stop: 01/07/18 08:59 Last Admin: 11/19/17 09:46 Dose: 1 tab Pantoprazole Sodium (Protonix) 40 mg PO QDAC [facility] Stop: 01/08/18 07:29 Last Admin: 11/19/17 06:37 Dose: 40 mg Quetiapine Fumarate (Seroquel) 12.5 mg PO HS [facility] PRN Reason: Protocol Stop: 01/07/18 20:59 Last Admin: 11/18/17 21:18 Dose: 12.5 mg Tramadol HCl (Ultram) 50 mg PO BID PRN PRN Reason: Pain (Moderate) Stop: 01/07/18 15:29 Last Admin: 11/14/17 16:12 Dose: 50 mg Zolpidem Tartrate (Ambien) 5 mg PO HS PRN PRN Reason: Insomnia Stop: 01/06/18 23:30 Last Admin: 11/19/17 01:39 Dose: 5 mg General: demented, appears older HEENT: NC/AT, PERRLA, EOMI Neck: Supple, No JVD, No LAD Lungs: CTAB Cardiovascular: RRR, Normal S1, Normal S2 Abdomen: non-tender, globular Neurological: no change, disorganized, bedbound Internal Medicine Assmt/Plan - Assessment Assessment: - Assessment Assessment: CHF DM-2 DEMENTIA 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 Nutritional Asmnt/Malnutr-PDOC - Dietary Evaluation Malnutrition Findings (Please click <Entered> for more info): Nutritional Asmnt/Malnutrition Start: 11/13/17 12: 43 Text: Status: Complete Freq: Document 11/13/17 12:43 RUMA (Rec: 11/13/17 13:03 RUMA [email or web address]) Nutritional Asmnt/Malnutrition Patient General Information Nutritional Screening Moderate Risk Consult Diagnosis psychosis Pertinent Medical Hx/Surgical Hx CHF, NSTEMI, left bundle branch block, CAD, DM, encephalopathy, dementia, CVA, hemtoma, hyperlipidemia, hypertensive heart disease, aortic sclerosis, moderate mitral regurgitaion, left ventricular diastolic dysfunction, first degree AV block Subjective Information Consult received for wound on 11/12. Per records, PO intake 75%. Pt was only alert to self only acording to nurse notes. Current Diet Order/ Nutrition Support pureed, CCHO, boost glucose control TID Pertinent Medications vit C, iron, lasix, novolog, theragran, protonix, seroquel Pertinent Labs 11/09 Cl 108, Glucose 102, A1c 7.3 11/11-11/13 POC 91-228 Nutritional Hx/Data Height 1.65 m Height (Calculated Centimeters) 165.1 Current Weight (lbs) 74.843 kg Weight (Calculated Kilograms) 74.8 Weight (Calculated Grams) 58201.7 [place] Body Weight 125 Body Mass Index (BMI) 27.4 Weight Status Overweight GI Symptoms GI Symptoms None Last BM 11/13 x 2 Difficult in: None Skin Integrity/Comment: erythema to medial coccyx Current %PO Good (75-100%) Estimated Nutritional Goals BEE in Kcals: Adj wt of IBW Calories/Kcals/Kg 25-30 adj wt 61kg Kcals Calculated 9098-0061 Protein: Adj wt of IBW Protein g/k Protein Calculated 61 Fluid: ml 1525-1830ml (1ml/kcal) Nutritional Problem 1. Problem Problem altered nutrition related lab values Etiology hx of DM Signs/Symptoms: Glucose 102, A1c 7.3, POC 91- 228 Malnutrition Alert Protein-Calorie Malnutrition N/A Is there a minimum of two criteria No selected? Query Text:Check all the applicable criteria. A minimum of two criteria are recommended for diagnosis of either severe or non-severe malnutrition. Intervention/Recommendation Comments 1. Continue with current diet as ordered. 2. Monitor PO intake, wt, labs and skin integrity 3. F/U as low risk in 7 days, 3/6 Expected Outcomes/Goals Expected Outcomes/Goals 1. PO intake to meet at least 75% of nutritional needs. 2. Wt stability, skin to remain intact, labs to approach WNL.
[2017-11-19] MEDS: Atorvastatin Calcium 10 MG TAB PO SCH (21:29)
--- NOTE | 2017-11-19 22:14 | Progress Notes ---
DATE: 11/19/2017 Case was discussed with staff of the patient and reviewed records. The patient is reported to be at times talking to herself. It is [birth year] birthday today. She is responding well to redirection. She is sleeping better and eating better. No side effects to the medication, no sedation, no nausea, no extrapyramidal problems. Family wants her to go back to the same place, where she was at before, which is a nursing facility. The patient wants to go home. No side effects to the medication. Her lab work showed high blood sugar that was checked many times and every time, it has been high. We will continue outpatient group therapy, milieu therapy, and adjust the medication as needed. JOB# [id number]
[2017-11-20] MEDS: Pantoprazole 40 mg EC Tab PO SCH (06:37)
[2017-11-20] MEDS: INSULIN ASPART SLIDING SCALE 100 UNITS/ML UNIT SUBQ SCH ×4 (06:37→21:26)
[2017-11-20] MEDS: Ferrous Sulfate 325 MG TAB PO SCH (09:49)
[2017-11-20] MEDS: Multivitamin Tab PO SCH (09:52)
[2017-11-20] MEDS: Lactulose 10 Gm/15 mL 30mL UDC PO SCH (09:53)
--- NOTE | 2017-11-20 11:41 | Internal Medicine Prog Note ---
Internal Medicine Subjective - Subjective Service Date: 11/20/17 Patient is:: awake, verbal, interactive, agitated, confused Per staff patient has:: no adverse event, agitated, confused, tolerating meds Internal Medicine Objective - Results Result Diagrams: 11/09/17 08:40 11/09/17 08:40 Recent Labs: Laboratory Last Values WBC 7.4 Th/cmm (4.8-10.8) 11/09/17 08:40 RBC 4.26 Mil/cmm (3.80-5.20) 11/09/17 08:40 Hgb 11.8 gm/dL (12-16) L 11/09/17 08:40 Hct 36.3 % (41.0-60) L 11/09/17 08:40 MCV 85.0 fl (81-100) 11/09/17 08:40 MCH 27.6 pg (27.0-31.0) 11/09/17 08:40 MCHC Differential 32.5 pg (28.0-36.0) 11/09/17 08:40 RDW 14.5 % (11.5-20.0) 11/09/17 08:40 Plt Count 217 Th/cmm (150-400) 11/09/17 08:40 MPV 9.8 fl 11/09/17 08:40 Neutrophils % 58.3 % (40.0-80.0) 11/09/17 08:40 Lymphocytes % 29.8 % (20.0-50.0) 11/09/17 08:40 Monocytes % 7.9 % (2.0-10.0) 11/09/17 08:40 Eosinophils % 3.2 % (0.0-5.0) 11/09/17 08:40 Basophils % 0.8 % (0.0-2.0) 11/09/17 08:40 Sodium 138 mEq/L (136-145) 11/09/17 08:40 Potassium 3.9 mEq/L (3.5-5.1) 11/09/17 08:40 Chloride 108 mEq/L (98-107) H 11/09/17 08:40 Carbon Dioxide 25.8 mEq/L (21.0-31.0) 11/09/17 08:40 Anion Gap 8.1 (7.0-16.0) 11/09/17 08:40 BUN 14 mg/dL (7-25) 11/09/17 08:40 Creatinine 0.6 mg/dL (0.6-1.2) 11/09/17 08:40 Est GFR ( Amer) TNP 11/09/17 08:40 Est GFR (Non-Af Amer) TNP 11/09/17 08:40 BUN/Creatinine Ratio 23.3 11/09/17 08:40 Glucose 102 mg/dL (70-105) 11/09/17 08:40 POC Glucose 122 MG/DL (70 - 105) H 11/20/17 06:11 Hemoglobin A1c % 7.3 % (4.0-6.0) H 11/09/17 08:40 Calcium 9.1 mg/dL (8.6-10.3) 11/09/17 08:40 - Physical Exam Vitals and I&O: Vital Signs Temp 0 F 11/20/17 06:26 Pulse 73 11/19/17 20:58 Resp 20 11/19/17 20:58 BP 151/81 11/19/17 20:58 Pulse Ox 95 11/19/17 20:58 Intake & Output 11/19/17 11/20/17 11/20/17 18:59 06:59 18:59 Intake Total 800 120 Balance 800 120 Intake: Oral 800 120 Other: # Voids 4 3 # Bowel Movements 2 1 Stool Characteristics Soft Soft Formed Formed Active Medications: Current Medications Acetaminophen (Tylenol) 650 mg PO Q4HR PRN PRN Reason: Mild Pain / Temp above 100 Stop: 01/06/18 23:30 Last Admin: 11/10/17 13:38 Dose: 650 mg Al Hydrox/Mg Hydrox/Simethicone (Maalox) 30 ml PO Q4HR PRN PRN Reason: GI DISTRESS Stop: 01/06/18 23:30 Ascorbic Acid (Vitamin C) 500 mg PO DAILY [facility] Stop: 01/08/18 08:59 Last Admin: 11/20/17 09:53 Dose: 500 mg Aspirin (Ecotrin) 81 mg PO DAILY [facility] Stop: 01/08/18 08:59 Last Admin: 11/20/17 09:52 Dose: 81 mg Atorvastatin Calcium (Lipitor) 20 mg PO HS [facility] Stop: 01/07/18 20:59 Last Admin: 11/19/17 21:29 Dose: 20 mg Bisacodyl (Dulcolax 10 Mg Supp) 10 mg RC DAILY PRN PRN Reason: Constipation Stop: 01/07/18 15:29 Carvedilol (Coreg) 25 mg PO BIDWM [facility] Stop: 01/07/18 17:59 Last Admin: 11/20/17 09:49 Dose: Not Given Clonidine HCl (Ebfwddtr-Udl-3) 1 patch TD Q7D [facility] Stop: 01/07/18 15:29 Last Admin: 11/15/17 15:13 Dose: 1 patch Donepezil HCl (Aricept) 5 mg PO HS [facility] Stop: 01/07/18 20:59 Last Admin: 11/19/17 21:29 Dose: 5 mg Famotidine (Pepcid) 20 mg PO DAILY [facility] Stop: 01/08/18 08:59 Last Admin: 11/20/17 09:51 Dose: 20 mg Ferrous Sulfate (Iron) 325 mg PO QDPC [facility] Stop: 01/08/18 08:29 Last Admin: 11/20/17 09:49 Dose: Not Given Furosemide (Lasix) 80 mg PO DAILY [facility] Stop: 01/08/18 08:59 Last Admin: 11/20/17 09:51 Dose: Not Given Insulin Aspart (Novolog Insulin Sliding Scale) 0 units SUBQ ACHS [facility] PRN Reason: Protocol Stop: 01/07/18 16:29 Last Admin: 11/20/17 06:37 Dose: Not Given Isosorbide Mononitrate (Imdur) 30 mg PO DAILY [facility] Stop: 01/08/18 08:59 Last Admin: 11/20/17 09:52 Dose: Not Given Lactulose (Cephulac) 20 gm PO DAILY [facility] Stop: 01/08/18 08:59 Last Admin: 11/20/17 09:53 Dose: Not Given Lisinopril (Zestril) 40 mg PO DAILY [facility] Stop: 01/08/18 08:59 Last Admin: 11/20/17 09:53 Dose: Not Given Lorazepam (Ativan) 0.5 mg PO Q4HR PRN; Protocol PRN Reason: Anxiety Stop: 12/07/17 23:30 Last Admin: 11/16/17 21:03 Dose: 0.5 mg Magnesium Hydroxide (Milk Of Magnesia) 30 ml PO HS PRN PRN Reason: Constipation Multivitamins/Vitamin C (Theragran) 1 tab PO DAILY [facility] Stop: 01/07/18 08:59 Last Admin: 11/20/17 09:52 Dose: 1 tab Pantoprazole Sodium (Protonix) 40 mg PO QDAC [facility] Stop: 01/08/18 07:29 Last Admin: 11/20/17 06:37 Dose: 40 mg Quetiapine Fumarate (Seroquel) 12.5 mg PO HS [facility] PRN Reason: Protocol Stop: 01/07/18 20:59 Last Admin: 11/19/17 21:29 Dose: 12.5 mg Tramadol HCl (Ultram) 50 mg PO BID PRN PRN Reason: Pain (Moderate) Stop: 01/07/18 15:29 Last Admin: 11/14/17 16:12 Dose: 50 mg Zolpidem Tartrate (Ambien) 5 mg PO HS PRN PRN Reason: Insomnia Stop: 01/06/18 23:30 Last Admin: 11/19/17 21:30 Dose: 5 mg General: demented, appears older HEENT: NC/AT, PERRLA, EOMI Neck: Supple, No JVD, No LAD Lungs: CTAB Cardiovascular: RRR, Normal S1, Normal S2 Abdomen: non-tender, globular Neurological: no change, disorganized, bedbound Internal Medicine Assmt/Plan - Assessment Assessment: CHF DM-2 DEMENTIA 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 Nutritional Asmnt/Malnutr-PDOC - Dietary Evaluation Malnutrition Findings (Please click <Entered> for more info): Nutritional Asmnt/Malnutrition Start: 11/13/17 12: 43 Text: Status: Complete Freq: Document 11/13/17 12:43 RUMA (Rec: 11/13/17 13:03 RUMA [email or web address]) Nutritional Asmnt/Malnutrition Patient General Information Nutritional Screening Moderate Risk Consult Diagnosis psychosis Pertinent Medical Hx/Surgical Hx CHF, NSTEMI, left bundle branch block, CAD, DM, encephalopathy, dementia, CVA, hemtoma, hyperlipidemia, hypertensive heart disease, aortic sclerosis, moderate mitral regurgitaion, left ventricular diastolic dysfunction, first degree AV block Subjective Information Consult received for wound on 11/12. Per records, PO intake 75%. Pt was only alert to self only acording to nurse notes. Current Diet Order/ Nutrition Support pureed, CCHO, boost glucose control TID Pertinent Medications vit C, iron, lasix, novolog, theragran, protonix, seroquel Pertinent Labs 11/09 Cl 108, Glucose 102, A1c 7.3 11/11-11/13 POC 91-228 Nutritional Hx/Data Height 5 ft 5 in Height (Calculated Centimeters) 165.1 Current Weight (lbs) 165 lb Weight (Calculated Kilograms) 74.8 Weight (Calculated Grams) 32618.7 [place] Body Weight 125 Body Mass Index (BMI) 27.4 Weight Status Overweight GI Symptoms GI Symptoms None Last BM 11/13 x 2 Difficult in: None Skin Integrity/Comment: erythema to medial coccyx Current %PO Good (75-100%) Estimated Nutritional Goals BEE in Kcals: Adj wt of IBW Calories/Kcals/Kg 25-30 adj wt 61kg Kcals Calculated 9868-8585 Protein: Adj wt of IBW Protein g/k Protein Calculated 61 Fluid: ml 1525-1830ml (1ml/kcal) Nutritional Problem 1. Problem Problem altered nutrition related lab values Etiology hx of DM Signs/Symptoms: Glucose 102, A1c 7.3, POC 91- 228 Malnutrition Alert Protein-Calorie Malnutrition N/A Is there a minimum of two criteria No selected? Query Text:Check all the applicable criteria. A minimum of two criteria are recommended for diagnosis of either severe or non-severe malnutrition. Intervention/Recommendation Comments 1. Continue with current diet as ordered. 2. Monitor PO intake, wt, labs and skin integrity 3. F/U as low risk in 7 days, 3/6 Expected Outcomes/Goals Expected Outcomes/Goals 1. PO intake to meet at least 75% of nutritional needs. 2. Wt stability, skin to remain intact, labs to approach WNL.
[2017-11-20] MEDS: Atorvastatin Calcium 10 MG TAB PO SCH (21:24)
--- NOTE | 2017-11-20 22:04 | Progress Notes ---
DATE: 11/20/2017 Case was discussed with staff of the patient, reviewed records. The patient continues to stay in bed. Continues to have poor insight, unpredictable, impulsive, needing redirection. Sleeping well, eating well, better. She is more alert. She knows it was her birthday yesterday. No side effects from the medication, no sedation, no nausea. Working on discharge plan and we will continue to work with the patient in group therapy, milieu therapy and adjust medications as needed. JOB# [id number]
[2017-11-21] MEDS: INSULIN ASPART SLIDING SCALE 100 UNITS/ML UNIT SUBQ SCH ×2 (06:35→12:27)
[2017-11-21] MEDS: Pantoprazole 40 mg EC Tab PO SCH (06:39)
[2017-11-21] MEDS: Ferrous Sulfate 325 MG TAB PO SCH (08:08)
[2017-11-21] MEDS: Lactulose 10 Gm/15 mL 30mL UDC PO SCH (08:08)
[2017-11-21] MEDS: Multivitamin Tab PO SCH (08:10)
--- NOTE | 2017-11-21 13:41 | Discharge Summary ---
DATE OF DISCHARGE: 11/21/2017 IDENTIFYING INFORMATION: The patient is an 87-year-old female. REASON FOR THE ADMISSION: The patient referred from intermediate facility as the patient was acting out. She was aggressive. Today, we start her on Seroquel. The patient was a poor historian, unable to participate in meaningful conversation or make safe plan for self-care. COURSE IN HOSPITAL: The patient was started on Aricept and 5 mg at bedtime. Continue with the Seroquel 12.5 mg at bedtime. The patient progressively got better. She became more alert, but unable to communicate. She was sleeping well. She was eating well. Her family was involved with her very often and here. I talked to them many times by phone and in person, so as she improved, she was no longer acting out in anyway dangerous. She was stable, she was sleeping well, eating well. We felt she could be discharged to a lesser level of care. The staff was supposed to get approval from Dr. Cunningham prior to discharge because reported high blood pressure that morning. FINAL DIAGNOSES: AXIS I: Psychosis, not otherwise specified, dementia. MEDICAL DIAGNOSES: Deferred to the medical doctor. The patient will follow up with the psychiatrist, primary care physician and therapist. EXPECTED OUTCOME: Stable if the patient complains with the above. [facility]# [id number]
--- NOTE | 2017-11-21 14:13 | Internal Medicine Prog Note ---
Internal Medicine Subjective - Subjective Patient seen and examined:: with staff, chart reviewed Patient is:: awake, verbal, interactive, agitated, confused Per staff patient has:: no adverse event, agitated, confused, tolerating meds Internal Medicine Objective - Results Result Diagrams: 11/09/17 08:40 11/09/17 08:40 Recent Labs: Laboratory Last Values WBC 7.4 Th/cmm (4.8-10.8) 11/09/17 08:40 RBC 4.26 Mil/cmm (3.80-5.20) 11/09/17 08:40 Hgb 11.8 gm/dL (12-16) L 11/09/17 08:40 Hct 36.3 % (41.0-60) L 11/09/17 08:40 MCV 85.0 fl (81-100) 11/09/17 08:40 MCH 27.6 pg (27.0-31.0) 11/09/17 08:40 MCHC Differential 32.5 pg (28.0-36.0) 11/09/17 08:40 RDW 14.5 % (11.5-20.0) 11/09/17 08:40 Plt Count 217 Th/cmm (150-400) 11/09/17 08:40 MPV 9.8 fl 11/09/17 08:40 Neutrophils % 58.3 % (40.0-80.0) 11/09/17 08:40 Lymphocytes % 29.8 % (20.0-50.0) 11/09/17 08:40 Monocytes % 7.9 % (2.0-10.0) 11/09/17 08:40 Eosinophils % 3.2 % (0.0-5.0) 11/09/17 08:40 Basophils % 0.8 % (0.0-2.0) 11/09/17 08:40 Sodium 138 mEq/L (136-145) 11/09/17 08:40 Potassium 3.9 mEq/L (3.5-5.1) 11/09/17 08:40 Chloride 108 mEq/L (98-107) H 11/09/17 08:40 Carbon Dioxide 25.8 mEq/L (21.0-31.0) 11/09/17 08:40 Anion Gap 8.1 (7.0-16.0) 11/09/17 08:40 BUN 14 mg/dL (7-25) 11/09/17 08:40 Creatinine 0.6 mg/dL (0.6-1.2) 11/09/17 08:40 Est GFR ( Amer) TNP 11/09/17 08:40 Est GFR (Non-Af Amer) TNP 11/09/17 08:40 BUN/Creatinine Ratio 23.3 11/09/17 08:40 Glucose 102 mg/dL (70-105) 11/09/17 08:40 POC Glucose 176 MG/DL (70 - 105) H 11/21/17 11:57 Hemoglobin A1c % 7.3 % (4.0-6.0) H 11/09/17 08:40 Calcium 9.1 mg/dL (8.6-10.3) 11/09/17 08:40 - Physical Exam Vitals and I&O: Vital Signs Temp 98.0 F 11/21/17 05:26 Pulse 64 11/21/17 09:46 Resp 18 11/21/17 09:46 BP 158/69 11/21/17 09:46 Pulse Ox 95 11/21/17 07:09 Intake & Output 11/20/17 11/21/17 11/21/17 18:59 06:59 18:59 Intake Total 800 180 Balance 800 180 Intake: Oral 800 180 Other: # Voids 3 2 # Bowel Movements 1 1 Stool Characteristics Soft Soft Formed Formed General: demented, appears older HEENT: NC/AT, PERRLA, EOMI Neck: Supple, No JVD, No LAD Lungs: CTAB Cardiovascular: RRR, Normal S1, Normal S2 Abdomen: non-tender, globular Neurological: no change, disorganized, bedbound Internal Medicine Assmt/Plan - Assessment Assessment: - Assessment Assessment: CHF DM-2 DEMENTIA 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 - Plan Plan: ada diet fall precaution dw rn Nutritional Asmnt/Malnutr-PDOC - Dietary Evaluation Malnutrition Findings (Please click <Entered> for more info): Nutritional Asmnt/Malnutrition Start: 11/13/17 12: 43 Text: Status: Complete Freq: Document 11/13/17 12:43 [email or web address] (Rec: 11/13/17 13:03 [facility]-[email or web address]) Nutritional Asmnt/Malnutrition Patient General Information Nutritional Screening Moderate Risk Consult Diagnosis psychosis Pertinent Medical Hx/Surgical Hx CHF, NSTEMI, left bundle branch block, CAD, DM, encephalopathy, dementia, CVA, hemtoma, hyperlipidemia, hypertensive heart disease, aortic sclerosis, moderate mitral regurgitaion, left ventricular diastolic dysfunction, first degree AV block Subjective Information Consult received for wound on 11/12. Per records, PO intake 75%. Pt was only alert to self only acording to nurse notes. Current Diet Order/ Nutrition Support pureed, CCHO, boost glucose control TID Pertinent Medications vit C, iron, lasix, novolog, theragran, protonix, seroquel Pertinent Labs 11/09 Cl 108, Glucose 102, A1c 7.3 11/11-11/13 POC 91-228 Nutritional Hx/Data Height 1.65 m Height (Calculated Centimeters) 165.1 Current Weight (lbs) 74.843 kg Weight (Calculated Kilograms) 74.8 Weight (Calculated Grams) 53270.7 [place] Body Weight 125 Body Mass Index (BMI) 27.4 Weight Status Overweight GI Symptoms GI Symptoms None Last BM 11/13 x 2 Difficult in: None Skin Integrity/Comment: erythema to medial coccyx Current %PO Good (75-100%) Estimated Nutritional Goals BEE in Kcals: Adj wt of IBW Calories/Kcals/Kg 25-30 adj wt 61kg Kcals Calculated 0759-0728 Protein: Adj wt of IBW Protein g/k Protein Calculated 61 Fluid: ml 1525-1830ml (1ml/kcal) Nutritional Problem 1. Problem Problem altered nutrition related lab values Etiology hx of DM Signs/Symptoms: Glucose 102, A1c 7.3, POC 91- 228 Malnutrition Alert Protein-Calorie Malnutrition N/A Is there a minimum of two criteria No selected? Query Text:Check all the applicable criteria. A minimum of two criteria are recommended for diagnosis of either severe or non-severe malnutrition. Intervention/Recommendation Comments 1. Continue with current diet as ordered. 2. Monitor PO intake, wt, labs and skin integrity 3. F/U as low risk in 7 days, 3/6 Expected Outcomes/Goals Expected Outcomes/Goals 1. PO intake to meet at least 75% of nutritional needs. 2. Wt stability, skin to remain intact, labs to approach WNL.
== END 2017-11-21 13:15 | DRG 885 ==
LOC: GERO 22:35
PROVIDERS: ADMIT Psychiatry & Neurology Psychiatry; ATTEND Psychiatry & Neurology Psychiatry
DX: F29 Unspecified psychosis not due to a substance or known physiological condition (principal); I11.0 Hypertensive heart disease with heart failure; I50.33 Acute on chronic diastolic (congestive) heart failure; I69.354 Hemiplegia and hemiparesis following cerebral infarction affecting left non-dominant side; F03.91 Unspecified dementia, unspecified severity, with behavioral disturbance; E11.9 Type 2 diabetes mellitus without complications; E78.5 Hyperlipidemia, unspecified; I25.10 Atherosclerotic heart disease of native coronary artery without angina pectoris; I34.0 Nonrheumatic mitral (valve) insufficiency; I25.2 Old myocardial infarction; Z88.1 Allergy status to other antibiotic agents; Z88.5 Allergy status to narcotic agent; Z88.0 Allergy status to penicillin
CPT/HCPCS: 36415-UA; 80048-TC; 82948-90; 83036-90; 85025-TC; 90899; 94760; J1650; J1815; Z7610